=== PATIENT | female | born 1965 | race Caucasian/White ===

== ENCOUNTER 2016-11-06 07:21 | Outpatient (CLI) | payer MEDICARE, MEDICAID | END 2016-11-06 07:22 | disposition home or self-care (01) | DX: M47.892 Other spondylosis, cervical region (principal); M43.12 Spondylolisthesis, cervical region; M50.31 Other cervical disc degeneration, high cervical region ==

== ENCOUNTER 2016-11-16 16:13 | Outpatient (CLI) | payer MEDICARE, MEDICAID | END 2016-11-16 16:14 | disposition home or self-care (01) | DX: R06.02 Shortness of breath (principal); R53.83 Other fatigue; R07.9 Chest pain, unspecified ==

== ENCOUNTER 2016-12-03 11:15 | Day surgery (SDC) | payer MEDICARE, MEDICAID ==
[2016-12-03] MEDS ORDERED: LACTATED RINGERS 1,000 ML IV ONE (12:05)
[2016-12-03] MEDS ORDERED: MIDAZOLAM 2 MG/2 ML VIAL IVP ONE (14:21)
[2016-12-03] MEDS ORDERED: fentaNYL 100 MCG/2 ML VIAL IVP ONE (14:21)
--- NOTE | 2016-12-03 14:24 | SURGERY HX AND PHYSICAL(T) ---
Surgical History & Physical - PMH/PSH/Social Hx Does the pt have a hx of MRSA?: No Neurological History: Head injury Eyes, Ears, Nose, Throat: None Cardiovascular: None Respiratory: None Skin: None Endocrine/Autoimmune: None Gastrointestinal: None Urinary: None Musculoskeletal: Other Psychiatric: Anxiety General: Colonoscopy Orthopedic: Other Smoking Status: Never smoker Does the pt drink ETOH?: Yes Frequency: Occasional Does the pt have substance abuse?: No Substance Use and Type: Marijuana - Home Meds and Allergies Home Medications: Acyclovir [Zovirax] 200 mg PO BID 11/24/15 Meloxicam 7.5 mg PO BID 11/24/15 traZODone [Desyrel] 200 mg PO DAILY PM 11/24/15 FLUoxetine [PROzac] 80 mg PO DAILY 09/02/16 Gabapentin 300 mg PO TID 09/02/16 Allergies/Adverse Reactions: Allergies Allergy/AdvReac Type Severity Reaction Status Date / Time No Known Drug Allergies Allergy Verified 12/03/16 12:16 - Vital Signs Temperature: 36.8 C Respiratory Rate: 16 O2 Saturation: 100 Weight (kg): 66.3 kg Height: 1.68 m - Patient Review Patient Review: Problems were reviewed with the patient during this visit. Medications were reviewed with the patient during this visit. Allergies were reviewed this patient during this visit. Pertinent Tests Reviewed: All pertitent test for this patient were reviewed. - Assessment & Plan Assessment and Plan: This is a 51 year old female was initially seen on October 25, [address] Medel for her second screening colonoscopy. At that time I had the opportunity to meet her and discuss questions but Dr. Medel performed the H&P. More than 30 days were allowed to elapse between that visit and the procedure today hence an update to the H&P is required. Upon questioning, the patient states that there have been no changes to her medications, allergies, medical status, or symptoms. She has no new questions. The last colonoscopy was done 10 years ago and was normal. The patient does not recall there being a specific reason she had a colonoscopy at that time. There is no 1st degree family history of colon or rectal cancer but both of her maternal grandparents had rectal cancer. She states she has a BM every other day. No blood. No melena. No fever or chills, nausea or emesis. She does have some issues with urinary incontinence and she has had a TVH/BSO as well as a vaginal bladder sling placed for bladder prolapse. 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 She has chronic pain and is on gabapentin, trazadone and amytryptiline She also takes meloicam, prozac and acyclovir. She has scoliosis and DJD and she has had neck surgery without a fusion Allergies: tape, MSO4 and codiene Family History Summary: Father (luba.) - Has a Hx of Heart Disease - Entered On: 02/27/2014 Mother (luba.) - Has a Hx of Arthritis - Entered On: 08/04/2014 Mother (luba.) - Has a Hx of Anxiety - Entered On: 08/04/2014 Mother (luba.) - Has a Hx of Hypertension - Entered On: 08/04/2014 Mother (luba.) - Has a Hx of High Cholesterol - Entered On: 08/04/2014 Mother (luba.) - Has a Hx of Headaches - Entered On: 08/04/2014 Father (luba.) - Has a Hx of Arthritis - Entered On: 08/04/2014 Father (luba.) - Has a Hx of High Cholesterol - Entered On: 08/04/2014 General Comments - FH: Father: CABG x 4 age 65, HTN Mother: Arthritis, HTN Siblings: Mental illness Risk Factors: Former cigarette smoker of up to 5 packs per day quitting in 2013 Uses marijuana Caffeine use: 3 drinks per day No alcohol use Exercise 7 times per week: 7 Type of Exercise: pilates, yoga Seatbelt use: 100 % Sun Exposure: occasionally Colonoscopy History: Date of Last Colonoscopy: 04/09/2005 Mammogram History: Date of Last Mammogram: 11/10/2014 Review of Systems General Denies fever, anorexia and weight loss. GI Denies abdominal pain, nausea, vomiting, diarrhea, constipation, change in bowel habits, melena, hematochezia, jaundice, gas/bloating, indigestion/ heartburn and dysphagia. CV Denies chest pains, palpitations, syncope and peripheral edema. states she has had chest pain in the past and it was orthopedic related and she states she has a history of an irregular heart rate but it requires no medications Resp Denies cough, shortness of breath, hemoptysis, wheezing and pleuritic chest pain. Vascular Denies leg swelling, leg coolness, pain in legs with walking, resting leg pain and pain at night in legs. Complains of incontinence. Denies dysuria, hematuria and urinary frequency. has chronic pain issues and she has pain in the perineal area Neuro Denies paralysis, paresthesias and seizures. Endo Denies cold intolerance, heat intolerance, polydipsia and polyuria. Heme states she has chronic anemia MS Complains of back pain. scoliosis Physical Exam General: well developed, well nourished, in no acute distress Head: normocephalic and atraumatic Eyes: non-icteric sclera Nose: patent nares Mouth: no dentures Neck: no bruits, no masses Lungs: CTA bilateral with no wheezes Heart: RRR with no murmurs Abdomen: soft, well healed cholecystectomy scars, NT, ND, NABS, no masses, no HSM Msk: scoliosis, minimal tenderness of the lower back, negative CVA tenderness, normal gait Pulses: pulses normal in all 4 extremities Extremities: no cyanosis, clubbing or edema Neurologic: CN II-XII grossly intact Cervical Nodes: no significant adenopathy Psych: alert and cooperative; normal mood and affect; normal attention span and concentration Impression & Recommendations: Problem # 1: Screening for malignant neoplasm of colon (ICD-V76.51) (ICD10- Z12.11) Assessment: Unchanged I have discussed the risks, benefits, alternatives and complications of a colonoscopy with potential biopsies with the patient to include but not limited to bleeding, perforation of the colon at the time of the procedure, delayed perforation, bleeding from biopsy sites that requires repeat colonoscopy and treatment, potential finding of cancer, need for repeated procedure preparation is not adequate or visualization is not possible, discomfort after the procedure , nausea, emesis, aspiration, pneumonia and . I have also discussed the requirement for MAC during which time the patient will receive IV sedative medication and will be monitored. The risk with this is aspiration, hypoventilation, inadequate sedation, recall of the procedure, pain during the procedure, requirement for anesthesiology support, decreased blood pressure, myocardial infarction and . The benefit of a colonoscopy is that we will see if there is evidence of polyps , lesions or cancer and the benefit of the moderate sedation will be that the patient will tolerate the procedure. The alternative to colonoscopy is not to perform it and follow the patient and the alternative to conscious sedation is general anesthesia. The patient understands and has had the opportunity to ask questions and desires the procedure. I have reiterated all of the above with the patient and the patient and I are in aggreement to move forward with the colonoscopy.
[2016-12-03 15:38] VITALS: BP 104/63
== END 2016-12-03 11:16 | disposition home or self-care (01) ==
LOC: SDS 11:15
PROVIDERS: ATTEND Surgery
PROC: 0DJD8ZZ Inspection of Lower Intestinal Tract, Via Natural or Artificial Opening Endoscopic (ICD-10-PCS; principal; 2016-12-03 12:45)
DX: Z12.11 Encounter for screening for malignant neoplasm of colon (principal); K57.30 Diverticulosis of large intestine without perforation or abscess without bleeding; K64.8 Other hemorrhoids; Z87.891 Personal history of nicotine dependence
CPT/HCPCS: G0121; J7120

== ENCOUNTER 2017-01-07 14:48 | Outpatient (CLI) | payer MEDICARE, MEDICAID ==
--- NOTE | 2017-01-08 10:35 | CT Report ---
CT CERVICAL SPINE WITHOUT CONTRAST: 01/07/2017 CLINICAL INDICATION: Cervicalgia. TECHNIQUE: Axial CT images of the cervical spine are obtained without contrast, following which sagi ttal and coronal reconstructions were performed. In accordance with CT protocol optimization, one or more of the following dose reduction techniques w ere utilized for this exam: automated exposure control, adjustment of mA and/or KV based on patient size, or use of iterative reconstructive technique. FINDINGS: There is mild levoscoliosis of the cervical spine, and 5 mm anterolisthesis of C5 on C6. The C1-2 and C2-3 disks are unremarkable. At C3-4, there is facet and uncovertebral hypertrophy, producing bilateral foraminal narrowing. No s ignificant spinal stenosis. At C4-5, there is right worse than left uncovertebral and facet hypertrophy, producing right foramina l narrowing. No significant spinal stenosis. At C5-6, the combination of anterolisthesis and facet hypertrophy produces mild bilateral foraminal n arrowing. No significant spinal stenosis. At C6-7, there is mild disk-osteophyte, without significant spinal or foraminal narrowing. The C7-T1 disc is unremarkable. The prevertebral soft tissues appear unremarkable. Limited evaluation of the lung apices is unremark able. IMPRESSION: DEGENERATIVE CHANGES, WITH MILD LEVOSCOLIOSIS AND ANTEROLISTHESIS OF C5 ON C6. JOB #: [id number] EXT JOB #:[id number]
== END 2017-01-07 14:49 | disposition home or self-care (01) ==
LOC: DI 14:48
PROVIDERS: ATTEND Neurological Surgery
DX: M47.892 Other spondylosis, cervical region (principal); M43.12 Spondylolisthesis, cervical region; M41.82 Other forms of scoliosis, cervical region
CPT/HCPCS: 72125

== ENCOUNTER 2017-11-07 08:00 | Outpatient (CLI) | payer MEDICARE, MEDICAID ==
[2017-11-07 19:08] LABS: BASOPHILS % (AUTO) 0.6 %; EOSINOPHILS # (AUTO) 0.5 10^3/uL (0.0-0.7); EOSINOPHILS % (AUTO) 6.8 %; HGB - HEMOGLOBIN 12.2 g/dL (12.0-16.0); LYMPHOCYTES # (AUTO) 2.3 10^3/uL (1.5-3.5); LYMPHOCYTES % (AUTO) 33.7 %; MEAN CORPUSCULAR HEMOGLOBIN 31.5 pg (27.0-31.0); MEAN CORPUSCULAR HGB CONC 32.8 g/dL (32.0-36.0); MEAN CORPUSCULAR VOLUME 96.1 fL (81.0-99.0); MEAN PLATELET VOLUME 7.7 fL (7.9-10.8); MONOCYTES # (AUTO) 0.5 10^3/uL (0.0-1.0); NEUTROPHILS # (AUTO) 3.6 10^3/uL (1.5-6.6); NEUTROPHILS % (AUTO) 51.9 %; PLT - PLATELET COUNT 232 10^3/uL (130-450); RED BLOOD COUNT 3.87 10^6/uL (4.20-5.40); RED CELL DISTRIBUTION WIDTH 13.3 % (12.0-15.0); WHITE BLOOD COUNT 6.9 x10^3/uL (4.8-10.8)
[2017-11-07 19:29] LABS: H. PYLORIS ANTIGEN STL NEGATIVE (Negative)
[2017-11-07 19:31] LABS: ALBUMIN 4.4 g/dL (3.2-5.5); ALBUMIN/GLOBULIN RATIO 1.5 (1.0-2.2); BILIRUBIN,TOTAL 0.6 mg/dL (0.2-1.0); CALCIUM 9.4 mg/dL (8.5-10.3); CREATININE 0.7 mg/dL (0.4-1.0); TOTAL PROTEIN 7.3 g/dL (6.7-8.2)
== END 2017-11-07 08:01 | disposition home or self-care (01) ==
LOC: LAB.WCP 08:00
PROVIDERS: ATTEND Physician Assistant Medical
DX: R10.13 Epigastric pain (principal)
CPT/HCPCS: 36415; 80053; 83690; 85025; 87338

== ENCOUNTER 2017-11-13 10:02 | Outpatient (CLI) | payer MEDICARE, MEDICAID ==
[2017-11-13 10:29] LABS: BASOPHILS % (AUTO) 0.7 %; EOSINOPHILS # (AUTO) 0.5 10^3/uL (0.0-0.7); EOSINOPHILS % (AUTO) 10.6 %; LYMPHOCYTES % (AUTO) 40.6 %; MEAN CORPUSCULAR HEMOGLOBIN 32.1 pg (27.0-31.0); MEAN CORPUSCULAR VOLUME 94.4 fL (81.0-99.0); MEAN PLATELET VOLUME 7.2 fL (7.9-10.8); MONOCYTES # (AUTO) 0.3 10^3/uL (0.0-1.0); MONOCYTES % (AUTO) 6.7 %; NEUTROPHILS # (AUTO) 2.1 10^3/uL (1.5-6.6); NEUTROPHILS % (AUTO) 41.4 %; PLT - PLATELET COUNT 210 10^3/uL (130-450); RED BLOOD COUNT 3.75 10^6/uL (4.20-5.40); RED CELL DISTRIBUTION WIDTH 13.3 % (12.0-15.0)
[2017-11-13 10:30] LABS: BILIRUBIN,URINE NEGATIVE (NEGATIVE); GLUCOSE, URINE (UA) NEGATIVE (NEGATIVE); KETONES,URINE (UA) NEGATIVE (NEGATIVE); LEUKOCYTE ESTERASE, URINE NEGATIVE (NEGATIVE); NITRITE,URINE NEGATIVE (NEGATIVE); OCCULT BLOOD,URINE NEGATIVE (NEGATIVE); PH,URINE 7.5 PH (5.0-7.5); PROTEIN,URINE NEGATIVE (NEGATIVE); UROBILINOGEN,URINE 0.2 (NORMAL) E.U./dL (NORMAL)
[2017-11-13 10:31] LABS: CLARITY,URINE CLEAR (CLEAR)
[2017-11-13 10:52] LABS: ALBUMIN 4.1 g/dL (3.2-5.5); ALBUMIN/GLOBULIN RATIO 1.4 (1.0-2.2); BILIRUBIN,TOTAL 0.7 mg/dL (0.2-1.0); CALCIUM 9.1 mg/dL (8.5-10.3); CREATININE 0.7 mg/dL (0.4-1.0); TOTAL PROTEIN 7.1 g/dL (6.7-8.2)
[2017-11-13 10:52] LABS: BACTERIA,URINE Rare /HPF (None Seen); RBC,URINE 0-5 /HPF (0-5); SQUAMOUS EPITHELIAL CELL,UR RARE Squamous (<= Few)
== END 2017-11-13 10:03 | disposition home or self-care (01) ==
LOC: LAB 10:02
PROVIDERS: ATTEND Family Medicine
DX: R10.32 Left lower quadrant pain (principal)
CPT/HCPCS: 36415; 80053; 81001; 85025; 87086

== ENCOUNTER 2017-11-13 14:13 | Outpatient (CLI) | payer MEDICARE, MEDICAID ==
[2017-11-13] MEDS ORDERED: IOPAMIDOL-300 100 ML VIAL ONE (14:37)
[2017-11-13] MEDS ORDERED: IOPAMIDOL-300 50 ML VIAL ONE ×2 (14:37→14:39)
--- NOTE | 2017-11-13 16:51 | CT Report ---
EXAM: CT ABDOMEN AND PELVIS EXAM DATE: 11/13/2017 04:28 PM. CLINICAL HISTORY: ABDOMINAL Pain, left LOWER QUADRANT. COMPARISONS: None. TECHNIQUE: Routine helical CT imaging was performed through the abdomen and pelvis. IV contrast: 100M L ISOVUE 300. Enteric contrast: Yes. Reconstructions: Coronal and sagittal. In accordance with CT protocol optimization, one or more of the following dose reduction techniques w ere utilized for this exam: automated exposure control, adjustment of mA and/or KV based on patient s ize, or use of iterative reconstructive technique. FINDINGS: Lung Bases: Mild peripheral atelectasis or fibrotic changes. No acute infiltrate. No effusion. Liver: Normal. No masses. Gallbladder/Bile Ducts: Surgically absent. No ductal dilation. Spleen: Normal. Pancreas: Normal. Adrenal Glands: Normal. Kidneys: Normal. No masses or hydronephrosis. Peritoneal Cavity/Bowel: Normal. No free fluid, free air or adenopathy. No masses or acute inflammato ry process. The appendix is well visualized and normal. Pelvic Organs: Normal. The bladder and visualized pelvic organs are within normal limits. Vasculature: No aneurysms or other significant abnormality. Bones: Mild scoliosis with degeneration changes. Other: None. IMPRESSION: Chronic and incidental findings. No acute disease. [facility] Referring Provider Line: [phone] SITE ID: [id number]
[2017-11-13] MEDS ORDERED: IOPAMIDOL-300 50 ML VIAL PO ONE (17:19)
[2017-11-13] MEDS ORDERED: IOPAMIDOL-300 100 ML VIAL IVP ONE (17:19)
== END 2017-11-13 14:14 | disposition home or self-care (01) ==
LOC: DI 14:13
PROVIDERS: ATTEND Family Medicine
DX: R10.32 Left lower quadrant pain (principal)
CPT/HCPCS: 74177; Q9967; 36415; 80053; 81001; 85025; 87086

== ENCOUNTER 2018-01-29 08:20 | Outpatient (CLI) | payer MEDICARE, MEDICAID | END 2018-01-29 08:21 | disposition critical access hospital (66) | LOC: EMS 08:20 | PROVIDERS: ATTEND Surgery | DX: R11.2 Nausea with vomiting, unspecified (principal); R10.9 Unspecified abdominal pain; R19.7 Diarrhea, unspecified; R51 Headache | CPT/HCPCS: A0425; A0427 ==

== ENCOUNTER 2018-01-29 08:45 | Emergency (ER) | payer MEDICARE, MEDICAID ==
[2018-01-29] MEDS ORDERED: LIDOCAINE PATCH 5% TOP PRN (08:59)
[2018-01-29] MEDS ORDERED: SODIUM CHLORIDE 0.9% 1,000 ML IV ONE (08:59)
--- NOTE | 2018-01-29 09:03 | ED Physician Documentation ---
History of Present Illness - Stated complaint Stated Complaint: MIGRAINE - Additonal information Additional information: hx from pt 53 f pmhx nerissa-danlos, hereditary anemia, IBS, migraines sp Cspine surgery a year ago 4 days ago [place] striking her L mandaeism on rocks no LOC some rib and wrist pain since but not severe, ankle OK and able to bear wt this AM awoke at 6AM with a very severe pablo mandaeism S[place]NCHEZ and NV hx migraines but this feels different neck pain too and numbness to both hands has NV and then abd pain and then blood tinged emesis 2/2 SÁNCHEZ no fever no cough sx largely resolved with zofran by EMS Review of Systems Constitutional: denies: Fever, Chills Eyes: denies: Loss of vision Ears: denies: Loss of hearing Nose: denies: Epistaxis Cardiac: reports: Chest pain / pressure (from fall) Respiratory: denies: Dyspnea, Cough GI: reports: Abdominal Pain (b) : denies: Dysuria Musculoskeletal: reports: Neck pain, Joint pain (L thumb). denies: Back pain Neurologic: reports: Numbness (both hands), Headache, Head injury. denies: Focal weakness Endocrine: denies: Easy bruising / bleeding Immunocompromised: denies: Immunocompromised PD PAST MEDICAL HISTORY - Past Medical History Psych: Panic attacks, Obsessive compulsive disorder, Other Musculoskeletal: Osteoarthritis, Chronic back pain - Past Surgical History Past Surgical History: Yes General: Cholecystectomy Ortho: Spine surgery /FIRST HELPER: Hysterectomy - Present Medications Home Medications: Ambulatory Orders Medication Instructions Recorded Confirmed Acyclovir [Zovirax] 200 mg PO BID 11/24/15 07/11/17 traZODone [Desyrel] 200 mg PO DAILY PM 11/24/15 07/11/17 FLUoxetine [PROzac] 80 mg PO DAILY 09/02/16 07/11/17 Gabapentin 300 mg PO TID 09/02/16 07/11/17 - Allergies Allergies/Adverse Reactions: Allergies Allergy/AdvReac Type Severity Reaction Status Date / Time morphine Allergy Itching Verified 01/29/18 09:01 Penicillins Allergy Edema Verified 01/29/18 09:02 - Social History Does the pt smoke?: No Smoking Status: Never smoker Does the pt drink ETOH?: Yes Does the pt have substance abuse?: No - Immunizations Immunizations are current?: Yes - POLST Patient has POLST: No PD ED PE NORMAL - Vitals Vital signs reviewed: Yes - General General: Alert and oriented X 3 - HEENT HEENT: PERRL. No: Atraumatic (TTP and STS L parietal, no arroyo sign) - Neck Neck: No: No bony TTP (+ TTP will collar and image) - Cardiac Cardiac: RRR - Respiratory Respiratory: No respiratory distress, Clear bilaterally, Other (TTP mild chest wall s crepitus) - Abdomen Abdomen: Non tender, Other (now no pain) - Derm Derm: Other (brusing to L radial hand = pt able to fully range and says she does not think she needs an xray) - Extremities Extremities: No deformity - Neuro Neuro: Alert and oriented X 3, heating fixture tender 2-12 intact, No motor deficit, Normal speech. No: No sensory deficit (numbness to both hands) Eye Opening: Spontaneous Motor: Obeys Commands Verbal: Oriented GCS Score: 15 Results - Vitals Vitals: Vital Signs - 24 hr 01/29/18 01/29/18 08:56 11:51 Temperature 36.7 C Heart Rate 74 68 Respiratory 14 18 Rate Blood Pressure 129/86 H 110/73 O2 Saturation 99 98 Oxygen O2 Source Room air - Labs Labs: Laboratory Tests 01/29/18 01/29/18 09:30 09:30 WBC 9.0 RBC 3.92 L Hgb 12.9 Hct 37.9 MCV 96.8 MCH 32.9 H MCHC 34.0 RDW 13.0 Plt Count 224 MPV 7.2 L Neut # (Auto) 7.1 H Lymph # (Auto) 1.1 L Wilcox # (Auto) 0.6 Eos # (Auto) 0.2 Baso # (Auto) 0.0 Absolute Nucleated RBC 0.00 Nucleated RBC % 0.0 Sodium 139 Potassium 3.5 Chloride 106 Carbon Dioxide 23 Anion Gap 10.0 BUN 18 Creatinine 0.7 Estimated GFR (MDRD) 88 L Glucose 96 Calcium 9.2 Total Bilirubin 0.5 AST 20 ALT 14 Alkaline Phosphatase 58 Total Protein 7.5 Albumin 4.7 Globulin 2.8 Albumin/Globulin Ratio 1.7 Lipase 27 - Rads (name of study) CTH Radiology: See rad report (neg) CTCS Radiology: See rad report (no acute, degen changes, stable surgical fusion) CXR Radiology: See rad report (neg) PD MEDICAL DECISION MAKING - ED course ED course: ROSA M performed SÁNCHEZ better abd pain better NV better 2/2 HI and teresa tirado got CTH and CS - no acute no rib fx on CXR pt does not think her wrist or ankle are broken labs fine feel pt is safe to go home - Sepsis Event Vital Signs: Vital Signs - 24 hr 01/29/18 01/29/18 08:56 11:51 Temperature 36.7 C Heart Rate 74 68 Respiratory 14 18 Rate Blood Pressure 129/86 H 110/73 O2 Saturation 99 98 Oxygen O2 Source Room air Departure - Departure Disposition: Home, Self Care Clinical Impression: Head injury Qualifiers: Encounter type: initial encounter Qualified Code(s): S09.90XA - Unspecified injury of head, initial encounter Headache Qualifiers: Headache type: unspecified Headache chronicity pattern: acute headache Intractability: not intractable Qualified Code(s): R51 - Headache Neck sprain Qualifiers: Encounter type: initial encounter Qualified Code(s): S13.9XXA - Sprain of joints and ligaments of unspecified parts of neck, initial encounter Chest wall contusion Qualifiers: Encounter type: initial encounter Laterality: unspecified laterality Qualified Code(s): S20.219A - Contusion of unspecified front wall of thorax, initial encounter Hand contusion Qualifiers: Encounter type: initial encounter Laterality: right Qualified Code(s): S60.221A - Contusion of right hand, initial encounter Abdominal pain Qualifiers: Abdominal location: generalized Qualified Code(s): R10.84 - Generalized abdominal pain Vomiting Qualifiers: Vomiting type: unspecified Vomiting Intractability: non-intractable Nausea presence: with nausea Qualified Code(s): R11.2 - Nausea with vomiting, unspecified Condition: Good Instructions: ED Head Injury Closed, ED Cephalgia Unspecified, ED Nausea Vomiting Comments: The CT scans of your head and spine were fine. The chest xray did not show any broken ribs. The labs were all fine too including liver kidney and pancreas function You are feeling better and I think it is safe for you to go home. Please follow up with your PMD for a recheck before the weekend
[2018-01-29 09:39] LABS: BASOPHILS % (AUTO) 0.5 %; EOSINOPHILS # (AUTO) 0.2 10^3/uL (0.0-0.7); EOSINOPHILS % (AUTO) 2.1 %; HGB - HEMOGLOBIN 12.9 g/dL (12.0-16.0); LYMPHOCYTES # (AUTO) 1.1 10^3/uL (1.5-3.5); LYMPHOCYTES % (AUTO) 12.3 %; MEAN CORPUSCULAR HEMOGLOBIN 32.9 pg (27.0-31.0); MEAN CORPUSCULAR VOLUME 96.8 fL (81.0-99.0); MEAN PLATELET VOLUME 7.2 fL (7.9-10.8); MONOCYTES # (AUTO) 0.6 10^3/uL (0.0-1.0); MONOCYTES % (AUTO) 6.4 %; NEUTROPHILS # (AUTO) 7.1 10^3/uL (1.5-6.6); NEUTROPHILS % (AUTO) 78.7 %; PLT - PLATELET COUNT 224 10^3/uL (130-450); RED BLOOD COUNT 3.92 10^6/uL (4.20-5.40)
[2018-01-29 09:52] LABS: ALBUMIN 4.7 g/dL (3.2-5.5); ALBUMIN/GLOBULIN RATIO 1.7 (1.0-2.2); BILIRUBIN,TOTAL 0.5 mg/dL (0.2-1.0); CALCIUM 9.2 mg/dL (8.5-10.3); CREATININE 0.7 mg/dL (0.4-1.0); TOTAL PROTEIN 7.5 g/dL (6.7-8.2)
--- NOTE | 2018-01-29 10:33 | CT Report ---
Procedure Date: 01/29/2018 Accession Number: [id number] / [id number] Procedure: CT - Head W/O CPT Code: FULL RESULT: EXAM: CT HEAD EXAM DATE: 01/29/2018 10:24 AM. CLINICAL HISTORY: Fell L caodaism vs rocks, SÁNCHEZ. COMPARISON: None. TECHNIQUE: Multiaxial CT images were obtained from the foramen magnum to the vertex. Reformats: Sagittal and coronal. IV contrast: None. In accordance with CT protocol optimization, one or more of the following dose reduction techniques were utilized for this exam: automated exposure control, adjustment of mA and/or KV based on patient size, or use of iterative reconstructive technique. FINDINGS: Parenchyma: No intraparenchymal hemorrhage. No evidence of mass, midline shift, or CT findings of infarction. Wilcox-white differentiation is distinct. Extraaxial Spaces: Normal for age. No subdural or epidural collections identified. Ventricles: Normal in size and position. Sinuses and Orbits: Imaged paranasal sinuses, orbits, and mastoids show no significant abnormality. Bones: No evidence of fracture or calvarial defect. Other: Globes and orbits are unremarkable. IMPRESSION: 1. No acute intracranial abnormality is identified. 2. No acute fracture. [facility]
--- NOTE | 2018-01-29 10:43 | XRAY Report ---
Procedure Date: 01/29/2018 Accession Number: [id number] / [id number] Procedure: XR - Chest 2 View X-Ray CPT Code: 94711 FULL RESULT: EXAM: CHEST RADIOGRAPHY EXAM DATE: 01/29/2018 10:27 AM. CLINICAL HISTORY: Fell on rocks chest pain. COMPARISON: 07/11/2017. TECHNIQUE: 2 views. FINDINGS: Lungs/Pleura: Interstitium is prominent. No consolidation. Lung volumes upper normal. No vascular congestion. No pneumothorax. No pleural effusions. Mediastinum: Heart size and mediastinal contour stable. Other: No acute osseous abnormalities. Degenerative changes of the thoracic and lumbar spine. Thoracic/lumbar scoliosis. Changes are again seen from cervical fusion. IMPRESSION: 1. No acute disease in the chest. [facility]
--- NOTE | 2018-01-29 11:00 | CT Report ---
Procedure Date: 01/29/2018 Accession Number: [id number] / [id number] Procedure: CT - Cervical Spine W/O CPT Code: FULL RESULT: EXAM: CT CERVICAL SPINE WITHOUT CONTRAST DATE: 01/29/2018 10:24 AM. HISTORY: Fell hit left head, neck pain, prior surgery. COMPARISONS: MRI cervical spine from 5 11/06/2016. CT from 01/07/2017. TECHNIQUE: Thin-section axial images were acquired of the cervical spine without contrast. Post-processing: Coronal and sagittal reformats. Other: None. In accordance with CT protocol optimization, one or more of the following dose reduction techniques were utilized for this exam: automated exposure control, adjustment of mA and/or KV based on patient size, or use of iterative reconstructive technique. FINDINGS: Alignment: Grade 1 anterolisthesis of C4 on C5 again seen. Slight levoscoliosis of the cervical spine. Articular facets are normally aligned. Occipital condyles are normally aligned. Bones: No acute fracture or bony lesion. Degenerative spurring. Interspace Levels/Facets: C1-C2: Degenerative changes of the anterior arch of C1 and the dens. C2-C3: Cervical facet arthropathy. Uncovertebral hypertrophy. C3-C4: Uncovertebral hypertrophy. Facet arthropathy. Moderate to severe right and mild left neural foraminal narrowing. C4-C5: Right greater than left facet arthropathy. Mild to moderate right neural foraminal narrowing. C5-C6: Changes are seen from anterior C5-C6 cervical fusion and intervertebral disk replacement. Cervical facet arthropathy. C6-C7: Disk space narrowing and osteophyte formation. Facet arthropathy. C7-T1: Disk space narrowing. Osteophyte formation. Facet arthropathy. Musculature: Normal. No fatty atrophy. Other: The paravertebral and prevertebral soft tissues are unremarkable. Lung apices are clear. Airways are clear. Visualized thyroid gland is unremarkable. No enlarged cervical lymph nodes are identified. Skull base is unremarkable. IMPRESSION: 1. No acute cervical spine abnormalities are identified. 2. Status post C5-C6 anterior cervical fusion and diskectomy, stable. 3. Degenerative changes of the cervical spine greatest at C6-C7 and C7-T1. [facility]
[2018-01-29 12:33] VITALS: BP 127/81
== END 2018-01-29 12:34 | disposition home or self-care (01) ==
LOC: EDUNIT# → ED 08:45
DX: S09.90XA Unspecified injury of head, initial encounter (principal); S13.9XXA Sprain of joints and ligaments of unspecified parts of neck, initial encounter; S20.219A Contusion of unspecified front wall of thorax, initial encounter; S60.221A Contusion of right hand, initial encounter; R10.84 Generalized abdominal pain; R11.2 Nausea with vomiting, unspecified; W18.30XA Fall on same level, unspecified, initial encounter; W22.8XXA Striking against or struck by other objects, initial encounter; X50.1XXA Overexertion from prolonged static or awkward postures, initial encounter; Y92.832 Beach as the place of occurrence of the external cause
CPT/HCPCS: 36415; 70450; 71046; 72125; 80053; 83690; 85025; 96360; 99283; A9270

== ENCOUNTER 2018-10-13 14:32 | Outpatient (CLI) | payer MEDICARE, MEDICAID ==
--- NOTE | 2018-10-14 09:05 | XRAY Report ---
Reason: FOOT PAIN, LEFT Procedure Date: 10/13/2018 Accession Number: [id number] / [id number] Procedure: WCP - Foot 2 View LT CPT Code: FULL RESULT: EXAM: LEFT FOOT RADIOGRAPHY EXAM DATE: 10/13/2018 02:47 PM. CLINICAL HISTORY: FOOT PAIN, LEFT. COMPARISON: None. TECHNIQUE: 3 views. FINDINGS: Bones: There is a small calcaneal bone spur. No fractures or bone lesions. Joints: Normal. No subluxations. Soft Tissues: Normal. No soft tissue swelling. IMPRESSION: No acute abnormality. [facility]
--- NOTE | 2018-10-14 09:07 | XRAY Report ---
Reason: HIP PAIN, BILATERAL Procedure Date: 10/13/2018 Accession Number: [id number] / [id number] Procedure: WCP - Hip BILAT CPT Code: FULL RESULT: EXAM: BILATERAL HIP RADIOGRAPHY EXAM DATE: 10/13/2018 02:47 PM. CLINICAL HISTORY: HIP PAIN, BILATERAL. COMPARISON: None. TECHNIQUE: 2 views each. FINDINGS: Bones: Normal. No fractures or bone lesion. Right Hip: Normal. No dislocation. The hip joint space is preserved. Left Hip: Normal. No dislocation. The hip joint space is preserved. Soft Tissues: Normal. No soft tissue swelling. IMPRESSION: Normal bilateral hip radiography. [facility]
== END 2018-10-13 14:33 | disposition home or self-care (01) ==
LOC: DI.WCP 14:32
PROVIDERS: ATTEND Physician Assistant Medical
DX: M79.672 Pain in left foot (principal); M25.552 Pain in left hip; M25.551 Pain in right hip
CPT/HCPCS: 73521

== ENCOUNTER 2018-10-14 11:56 | Outpatient (CLI) | payer MEDICARE, MEDICAID ==
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
== END 2018-10-14 11:57 | disposition home or self-care (01) ==
LOC: DI 11:56
PROVIDERS: ATTEND Physician Assistant Medical
DX: M47.9 Spondylosis, unspecified (principal); M48.02 Spinal stenosis, cervical region; Z98.1 Arthrodesis status; M43.12 Spondylolisthesis, cervical region; M50.31 Other cervical disc degeneration, high cervical region
CPT/HCPCS: 72141

== ENCOUNTER 2018-12-17 15:42 | Outpatient (CLI) | payer MEDICARE, MEDICAID ==
--- NOTE | 2018-12-18 10:45 | Ultrasound Report ---
Reason: INGUINAL PAIN,RIGHT Procedure Date: 12/17/2018 Accession Number: [id number] / [id number] Procedure: US - Pelvic Limited or F/U CPT Code: FULL RESULT: EXAM: INGUINAL ULTRASOUND EXAM DATE: 12/17/2018 05:39 PM. CLINICAL HISTORY: Inguinal pain, right. COMPARISON: None. TECHNIQUE: Real-time sonographic imaging of the inguinal canals and vascular structures, including color-flow, was performed by the guitar maker. Multiple care support representative static images were saved for review. FINDINGS: Hernia: None identified with or without Valsalva. Soft Tissues: Normal. No fluid collections or adenopathy. Other: None. IMPRESSION: Normal. No inguinal hernia evident. RADIA
== END 2018-12-17 15:43 | disposition home or self-care (01) ==
LOC: DI 15:42
PROVIDERS: ATTEND Physician Assistant
DX: R10.31 Right lower quadrant pain (principal)
CPT/HCPCS: 76857

== ENCOUNTER 2018-12-26 09:30 | Outpatient (CLI) | payer MEDICARE, MEDICAID ==
[2018-12-26] MEDS ORDERED: IOVERSOL 320 100 ML VIAL IVP ONE ×2 (09:53→13:39)
[2018-12-26] MEDS ORDERED: IOVERSOL 320 50 ML VIAL ONE (09:53)
--- NOTE | 2018-12-26 14:59 | CT Report ---
Reason: ABDOMINAL PAIN,RIGHT LOWER QUADRANT Procedure Date: 12/26/2018 Accession Number: [id number] / [id number] Procedure: CT - Abdomen/Pelvis W CPT Code: FULL RESULT: EXAM: CT ABDOMEN AND PELVIS EXAM DATE: 12/26/2018 11:20 AM. CLINICAL HISTORY: Abdominal pain, right lower quadrant. COMPARISONS: ABDOMEN/PELVIS W/ 11/13/2017 4:19 PM. TECHNIQUE: Routine helical CT imaging was performed through the abdomen and pelvis. IV contrast: 70 mL Optiray 320. Enteric contrast: Yes. Reconstructions: Coronal and sagittal. In accordance with CT protocol optimization, one or more of the following dose reduction techniques were utilized for this exam: automated exposure control, adjustment of mA and/or KV based on patient size, or use of iterative reconstructive technique. FINDINGS: Lung Bases: Bibasilar peripheral interstitial thickening versus groundglass right greater than left is noted, similar to prior in distribution, possibly slightly more prominent. Liver: Normal. No masses. Gallbladder/Bile Ducts: Status post cholecystectomy. Spleen: Normal. Pancreas: Normal. Adrenal Glands: Normal. Kidneys: Normal. No masses or hydronephrosis. Peritoneal Cavity/Bowel: Visually, there is marked narrowing of the caliber of the terminal ileum with no inflammatory changes in the cecal region and the appendix not visualized. The appendix is partially visualized with the area of the appendix as seen on previous CT demonstrating no inflammatory changes. Pelvic Organs: Normal. The bladder and visualized pelvic organs are within normal limits. Vasculature: No aneurysms or other significant abnormality. Bones: Redemonstration of moderate levoconvex thoracolumbar scoliosis. No aggressive osseous lesions. Other: None. IMPRESSION: Persistent lung base changes, possibly early interstitial lung disease. Scoliosis. Partial visualization of the appendix with no active inflammation in the region. RADIA
== END 2018-12-26 09:31 | disposition home or self-care (01) ==
LOC: DI 09:30
PROVIDERS: ATTEND Physician Assistant
DX: R10.31 Right lower quadrant pain (principal); M41.85 Other forms of scoliosis, thoracolumbar region
CPT/HCPCS: 74177; Q9967

== ENCOUNTER 2019-02-11 10:40 | Outpatient (CLI) | payer MEDICARE, MEDICAID ==
--- NOTE | 2019-02-11 14:49 | XRAY Report ---
Reason: RT INGUINAL REPAIR/PRE OP Procedure Date: 02/11/2019 Accession Number: [id number] / [id number] Procedure: XR - Chest 2 View X-Ray CPT Code: 33626 FULL RESULT: EXAM: CHEST RADIOGRAPHY EXAM DATE: 02/11/2019 10:49 AM. CLINICAL HISTORY: RT INGUINAL REPAIR/PRE OP. COMPARISON: CHEST 2 VIEW 01/29/2018 10:16 AM. TECHNIQUE: 2 views. FINDINGS: Lungs/Pleura: No focal opacities evident. No pleural effusion. No pneumothorax. Normal volumes. Mediastinum: Heart and mediastinal contours are unremarkable. Other: None. IMPRESSION: No acute intrathoracic plain film abnormality. RADIA
== END 2019-02-11 10:41 | disposition home or self-care (01) ==
LOC: DI 10:40 → RT 10:41
PROVIDERS: ATTEND Surgery
DX: Z01.818 Encounter for other preprocedural examination (principal); K40.90 Unilateral inguinal hernia, without obstruction or gangrene, not specified as recurrent; Q79.6 Ehlers-Danlos syndromes
CPT/HCPCS: 71046; 93005

== ENCOUNTER 2019-02-17 07:26 | Day surgery (SDC) | payer MEDICARE, MEDICAID ==
[~2019-02-17 07:26] MED LIST: CEFAZOLIN SODIUM IN 0.9 % NACL 2 GM/100 ML BAG IV ONE
[2019-02-17] MEDS ORDERED: LACTATED RINGERS 1,000 ML IV ONE (07:59)
--- NOTE | 2019-02-17 08:08 | ANESTHESIA ---
Pre-Anesthesia VS, & Labs - Diagnosis right inguinal hernia - Procedure right inguinal hernia repair Vital Signs: Temp Pulse Resp BP Pulse Ox 36.7 C 62 16 140/70 H 98 02/17/19 07:40 02/17/19 07:40 02/17/19 07:40 02/17/19 07:40 02/17/19 07:40 Height 5 ft 6 in Weight (kg) 67.4 kg Body Mass Index 22.6 - NPO >8 hours - Is Patient ?: No - Lab Results Current Lab Results: Laboratory Tests 02/17/19 07:55: POC Whole Bld Glucose 94 Home Medications and Allergies Home Medications: Ambulatory Orders Albuterol Sulf [Ventolin Hfa Inhaler] 1 - 2 puffs INH Q4HR PRN 02/11/19 Butalbital/Aspirin/Caffeine [Svgpjzxwbu-WMG-Phijjpnx Cap] 1 - 2 each PO Q4HR PRN 02/11/19 Cyclobenzaprine HCl 10 mg PO TID PRN 02/11/19 Dicyclomine HCl 1 - 2 cap PO QID PRN 02/11/19 Fluticasone [Flonase] 1 sprays DESHAWN BID 02/11/19 Meloxicam 7.5 mg PO BID PRN 02/11/19 Acyclovir [Zovirax] 200 mg PO BID 11/24/15 traZODone [Desyrel] 200 mg PO DAILY PM 11/24/15 FLUoxetine [PROzac] 20 mg PO TID 09/02/16 Albuterol Sulf [Ventolin Hfa Inhaler] 1 - 2 puffs INH Q4HR PRN 02/11/19 Butalbital/Aspirin/Caffeine [Xqlanlvsgl-CZT-Etppucmj Cap] 1 - 2 each PO Q4HR PRN 02/11/19 Cyclobenzaprine HCl 10 mg PO TID PRN 02/11/19 Dicyclomine HCl 1 - 2 cap PO QID PRN 02/11/19 Fluticasone [Flonase] 1 sprays DESHAWN BID 02/11/19 Meloxicam 7.5 mg PO BID PRN 02/11/19 Allergies/Adverse Reactions: Allergies Allergy/AdvReac Type Severity Reaction Status Date / Time morphine Allergy Itching Verified 01/29/18 09:01 adhesive AdvReac Rash Verified 02/11/19 10:53 Anes History & Medical History - Anesthetic History Anesthesia Complications: reports: No previous complications - Medical History Cardiovascular: reports: Arrhythmia Pulmonary: reports: None, Sleep apnea (reports mild) Gastrointestinal: reports: Diverticulitis, Other (IBS) Urinary: reports: None Neuro: reports: Migraines Musculoskeletal: reports: Osteoarthritis, Chronic back pain, Other (Simona tirado.) Endocrine/Autoimmune: reports: None Blood Disorders: reports: None Skin: reports: Rosacea Smoking Status: Former smoker (Quit 10 years ago) Psychosocial: reports: Depression, Anxiety, Cannabis (daily marijuana use. approximately 6 bowls per day) - Surgical History General: Cholecystectomy, Colonoscopy, Other Eyes Ears Nose Throat (EENT): Tonsil/Adenoidectomy Gynecologic: Hysterectomy, Breast reduction Orthopedic: Arthroscopic surgery, Spine surgery (ACDF Cervical spine for fracture) Exam General: Alert, Oriented x3, Cooperative, No acute distress Dental: WNL Mouth Openin Fingerbreadth Neck Mobility: Reduced Mallampati classification: I Thyromental Distance: greater than 6 cm Respiratory: Lungs clear, Normal breath sounds, No respiratory distress, No accessory muscle use Cardiovascular: Regular rate, Normal S1, Normal S2, No murmurs Mental/Cognitive Status: Alert/Oriented X3, Normal for patient Plan Anesthesia Type: General Consent for Procedure(s) Verified and Reviewed: Yes Code Status: Attempt Resuscitation ASA classification: 2-Mild systemic disease Is this case an emergency?: No
[2019-02-17] MEDS ORDERED: ceFAZolin 1 GM VIAL ONE (08:13)
[2019-02-17] MEDS ORDERED: LIDOCAINE-MPF 1% 30 ML VIAL ONE (08:14)
[2019-02-17] MEDS ORDERED: BUPIVACAINE 0.5%-EPI 1:200000 PF 30 ML VIAL ONE (08:15)
[2019-02-17] MEDS ORDERED: fentaNYL 100 MCG/2 ML VIAL IVP ONE (08:30)
[2019-02-17] MEDS ORDERED: KETOROLAC 30 MG/ML VIAL IVP ONE (08:30)
[2019-02-17] MEDS ORDERED: PROPOFOL 200 MG/20 ML VIAL IVP ONE (08:30)
[2019-02-17] MEDS ORDERED: MIDAZOLAM 2 MG/2 ML VIAL IVP ONE (08:30)
[2019-02-17] MEDS ORDERED: GLYCOPYRROLATE 1 MG/5 ML VIAL IVP ONE (08:30)
[2019-02-17] MEDS ORDERED: SEVOFLURANE 250 ML LIQUID INH ONE (08:30)
[2019-02-17] MEDS ORDERED: ROCURONIUM 50 MG/5 ML VIAL IVP ONE (08:30)
[2019-02-17] MEDS ORDERED: LIDOCAINE-MPF 2% 5 ML VIAL IM ONE (08:30)
[2019-02-17] MEDS ORDERED: ONDANSETRON 4 MG/2 ML VIAL IVP ONE (08:30)
[2019-02-17] MEDS ORDERED: NEOSTIGMINE 1 MG/1 ML 10 ML MDV IVP ONE (08:30)
[2019-02-17] MEDS ORDERED: DEXAMETHASONE 4 MG/ML VIAL IVP ONE (08:30)
[2019-02-17] MEDS ORDERED: LIDOCAINE 1% 50 ML MDV SUBQ ONE (09:05)
[2019-02-17] MEDS ORDERED: BUPIVACAINE 0.5%-EPI 1:200000 PF 30 ML VIAL SUBQ ONE (09:05)
[2019-02-17] MEDS ORDERED: ceFAZolin 1 GM VIAL IR ONE (09:06)
--- NOTE | 2019-02-17 09:30 | OPERATIVE REPORT ---
Operative Report - General Procedure Date: 02/17/19 Planned Procedure: Right Inguinal Hernia Repair Pre-Op Diagnosis: Right Inguinal Hernia Procedure Performed: Right Inguinal Hernia Repair Post Op Diagnosis: Indirect Right Inguinal Hernia - Procedure Note Primary Surgeon: Ramona Anesthesia Provider: NICANOR Jade Anesthesia Technique: General ET tube, Local Estimated Blood Loss (mL): 5 Indications: Painful right inguinal hernia Findings: Indirect Right Inguinal Hernia Complications: None apparent - Other Other Information/Narrative: After obtaining informed consent, the patient is brought to the operating room and placed in the supine position on the operating table. Following successful induction of general endotracheal anesthesia, appropriate padding of all bony prominences, and placement of appropriate monitors, the right abdomen was prepped and draped in the standard surgical fashion. A timeout was held per MSOAP protocol. We began the procedure by creating an ileal inguinal nerve block. This was done by infiltrating a mixture of local anesthetics just medial to the anterior superior iliac spine on the right. We continued by identifying an area for our incision in the right lower quadrant. This was just superior and lateral to the pubic tubercle. This was anesthetized with local anesthetic. The incision was created and carried down through the skin and subcutaneous tissue. Aiden's fascia was identified and gently opened. The external oblique aponeurosis was identified. It was further anesthetized and then opened in the direction of its fibers. The ilioinguinal nerve was carefully identified and preserved. We then identified the round ligament and the indirect defect. The round ligament was divided between hemostats and allowed to retract back into the abdominal cavity. We turned our attention to repair of the defect itself. We chose a medium piece of Prolene hernia system mesh.The lot number was [id number].This was deployed into the defect according to powder shoveler's directions.The posterior circular portion was straightened and flattened in the preperitoneal space so that it would cover the entire area without wrinkling. The overlying leaflet was then sewn with a single Vicryl suture to the pubic tubercle medially. Laterally, the mesh was tucked underneath the external oblique aponeurosis to hold it into place. The ilioinguinal nerve was then released and allowed out tension on the surface of the mesh. The wound was checked for hemostasis and irrigated with saline solution. The external oblique aponeurosis was closed with a running locking Vicryl suture. Aiden's fascia was closed with Vicryl and Monocryl stitches were placed in the skin. All sponge, needle, and instrument counts were correct at the conclusion of the case. Patient was allowed to awaken from anesthesia without difficulty and taken to the postanesthesia care unit in good condition.
[2019-02-17] MEDS ORDERED: HYDROmorphone 0.5 MG/0.5 ML SYRINGE IVP PRN (09:35)
[2019-02-17] MEDS ORDERED: ONDANSETRON 4 MG/2 ML VIAL IVP PRN (09:35)
[2019-02-17] MEDS ORDERED: oxyCODONE 5 MG TABLET PO PRN (09:35)
[2019-02-17] MEDS ORDERED: oxyCODONE 5 MG TABLET ONE (10:32)
[2019-02-17 11:05] VITALS: BP 121/71
== END 2019-02-17 07:27 | disposition home or self-care (01) ==
LOC: SDS 07:26
PROVIDERS: ATTEND Surgery
PROC: 0YU50JZ Supplement Right Inguinal Region with Synthetic Substitute, Open Approach (ICD-10-PCS; principal; 2019-02-17 08:30)
DX: K40.90 Unilateral inguinal hernia, without obstruction or gangrene, not specified as recurrent (principal); Q79.6 Ehlers-Danlos syndromes; E16.2 Hypoglycemia, unspecified; D64.9 Anemia, unspecified; G47.30 Sleep apnea, unspecified
CPT/HCPCS: 49505; A9270; J0690; J7120

== ENCOUNTER 2019-08-28 11:00 | Outpatient (CLI) | payer MEDICARE, MEDICAID ==
--- NOTE | 2019-08-30 18:26 | XRAY Report ---
Reason: PAIN IN LEFT FOOT X 2 YEARS Procedure Date: 08/28/2019 Accession Number: [id number] / [id number] Procedure: XR - Foot 3 View LT CPT Code: Final Report FULL RESULT: EXAM: LEFT FOOT RADIOGRAPHY EXAM DATE: 08/28/2019 11:11 AM. CLINICAL HISTORY: PAIN IN LEFT FOOT X 2 YEARS. COMPARISON: FOOT 2 VIEW LT 10/13/2018 2:35 PM. TECHNIQUE: 3 views. FINDINGS: Bones: Normal. No fractures or bone lesions. Joints: Normal. No subluxations. Soft Tissues: Normal. No soft tissue swelling. IMPRESSION: Normal foot radiography. RADIA
== END 2019-08-28 11:01 | disposition home or self-care (01) ==
LOC: DI 11:00
PROVIDERS: ATTEND Podiatrist
DX: M79.672 Pain in left foot (principal)

== ENCOUNTER 2019-09-10 13:19 | Outpatient (CLI) | payer MEDICARE, MEDICAID ==
--- NOTE | 2019-09-11 10:21 | DEXA Report ---
Reason: POSTMENOPAUSAL Procedure Date: 09/10/2019 Accession Number: [id number] / [id number] Procedure: DEX - Dexa Spine and/or Hip CPT Code: Final Report FULL RESULT: EXAM: Dexa Spine and/or Hip DATE: 09/10/2019 1:48 PM CLINICAL HISTORY: POSTMENOPAUSAL TECHNIQUE: Dual energy x-ray absorptiometry (DXA) was performed on a [employer] System. Regions measured are the AP Spine, femoral neck, and if needed forearm. COMPARISON: None. In accordance with the International Society for Clinical Densitometry (ISCD) guidelines, data from previous exams may be reanalyzed using current recommendations and techniques. This is done to allow a more accurate basis for comparison with the current study. FINDINGS: The data for the lumbar spine is as follows: BMD (g/cm/cm) T-SCORE Z-SCORE REGION L1 0.840 -2.4 -1.7 L2 0.935 -2.2 -1.5 L3 0.981 -1.8 -1.1 L4 1.081 -1.0 -0.3 TOTAL 0.960 -1.8 -1.2 NOTE: All evaluable vertebrae are used for classification The data for the hip is as follows: BMD (g/cm/cm) T-SCORE Z-SCORE REGION Neck 0.754 -2.0 -1.1 TOTAL 0.741 -2.1 -1.5 NOTE: The femoral neck or total proximal femur, whichever is lowest, is used for classification. IMPRESSION: THE WHO CLASSIFICATION BASED ON THE INTERNATIONAL REFERENCE STANDARD IS OSTEOPENIA. THE FRACTURE RISK IS INCREASED. RECOMMENDATION: Patients with diagnosis of osteoporosis or osteopenia should have regular bone mineral density assessment. For those eligible for Medicare, routine testing is allowed once every 2 years. Testing frequency can be increased for patients who have rapidly progressing disease or for those who are receiving medical therapy to restore bone mass. COMMENT: World Health Organization (WHO) definitions for osteoporosis and osteopenia: NORMAL BMD: T-score at -1.0 or higher, fracture risk is low OSTEOPENIA BMD: T-score between -1.0 and -2.5, fracture risk is increased. OSTEOPOROSIS BMD: T-score at -2.5 or lower, fracture risk is high. National Osteoporosis Foundation recommends: 1. Obtain adequate dietary calcium (at least 1200 mg per day) and vitamin D (400-800 international units per day). 2. Participate, as appropriate, in regular weightbearing and muscle-strengthening exercise. 3. Avoid tobacco use and reduce alcohol and caffeine intake. 4. For more detailed information see the website at www.NOF.org.
== END 2019-09-10 13:20 | disposition home or self-care (01) ==
LOC: DI 13:19
PROVIDERS: ATTEND Physician Assistant Medical
DX: Z78.0 Asymptomatic menopausal state (principal); M85.89 Other specified disorders of bone density and structure, multiple sites
CPT/HCPCS: 77080

== ENCOUNTER 2019-11-17 09:56 | Outpatient (CLI) | payer MEDICARE, MEDICAID ==
[2019-11-17 13:43] LABS: BASOPHILS # (AUTO) 0.1 10^3/uL (0.0-0.1); BASOPHILS % (AUTO) 0.5 %; EOSINOPHILS # (AUTO) 0.3 10^3/uL (0.0-0.7); EOSINOPHILS % (AUTO) 3.4 %; HGB - HEMOGLOBIN 11.8 g/dL (12.0-16.0); LYMPHOCYTES # (AUTO) 1.9 10^3/uL (1.5-3.5); LYMPHOCYTES % (AUTO) 19.8 %; MEAN CORPUSCULAR HEMOGLOBIN 31.6 pg (27.0-31.0); MEAN CORPUSCULAR HGB CONC 32.9 g/dL (32.0-36.0); MEAN CORPUSCULAR VOLUME 96.2 fL (81.0-99.0); MEAN PLATELET VOLUME 9.2 fL (7.9-10.8); MONOCYTES # (AUTO) 0.8 10^3/uL (0.0-1.0); NEUTROPHILS # (AUTO) 6.3 10^3/uL (1.5-6.6); PLT - PLATELET COUNT 275 10^3/uL (130-450); RED BLOOD COUNT 3.73 10^6/uL (4.20-5.40); RED CELL DISTRIBUTION WIDTH 13.2 % (12.0-15.0); WHITE BLOOD COUNT 9.3 x10^3/uL (4.8-10.8)
[2019-11-17 14:20] LABS: ALBUMIN/GLOBULIN RATIO 1.2 (1.0-2.2); BILIRUBIN,TOTAL 0.4 mg/dL (0.2-1.0); CALCIUM 9.1 mg/dL (8.5-10.3); CREATININE 0.6 mg/dL (0.4-1.0); TOTAL PROTEIN 7.3 g/dL (6.7-8.2)
[2019-11-17 14:23] LABS: FERRITIN 46.4 ng/mL (11.0-306.8)
== END 2019-11-17 23:59 | disposition home or self-care (01) ==
LOC: LAB.WCP 09:56
PROVIDERS: ATTEND Physician Assistant Medical
DX: E16.2 Hypoglycemia, unspecified (principal); D64.9 Anemia, unspecified
CPT/HCPCS: 36415; 80053; 82607; 82728; 85025

== ENCOUNTER 2020-01-08 13:03 | Emergency (ER) | payer MEDICARE, MEDICAID ==
[2020-01-08 13:13] VITALS: BP 105/64
[2020-01-08] MEDS ORDERED: BACITRACIN ZINC OINT 1 PACKET TOP STA (13:58)
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
== END 2020-01-08 14:10 | disposition home or self-care (01) ==
LOC: ED 13:03
DX: S51.832A Puncture wound without foreign body of left forearm, initial encounter (principal); W27.1XXA Contact with garden tool, initial encounter; Y93.H2 Activity, gardening and landscaping; Y92.007 Garden or yard of unspecified non-institutional (private) residence as the place of occurrence of the external cause
CPT/HCPCS: 99281; 99282; A9270

== ENCOUNTER 2020-06-16 09:00 | Outpatient (CLI) | payer MEDICARE, MEDICAID ==
--- OUTSIDE RECORDS SUMMARY | 2020-06-21 14:42 | EXTERNAL MEDICAL SUMMARY RPT | Continuity of Care Document ---
:1965 Demographics Phone Unavailable Preferred Language Unknown Marital Status Unknown Scientologist Affiliation Unknown Race Unknown Ethnic Group Unknown Author Organization [place] Address [address] [place] [address] Phone Care Team Providers Name Role Phone Young Unavailable Unavailable Problems date description facility Finding [facility] 2017-10-28 14:04 Unspecified mood [affective] disorder [facility] Allergies date description facility [facility] NO KNOWN ALLERGIES [facility] Medications date description facility 2010-12-27 00:00:00 Piroxicam 20 MG Oral Capsule [Feldene] [facility] 2010-12-27 00:00:00 Cyclobenzaprine hydrochloride 10 MG Or al [facility] Tablet 2010-12-27 00:00:00 Trazodone Hydrochloride 50 MG Oral [facility] 2012-12-03 00:00:00 Acyclovir 200 MG Oral [facility] 2012-12-03 00:00:00 Fluoxetine 10 MG Oral Capsule [Prozac] [facility] 2012-12-03 00:00:00 pregabalin 25 MG [facility] 2012-12-03 00:00:00 Naproxen sodium 220 MG Oral Tablet [facility] 2016-02-17 00:00:00 Trazodone Hydrochloride 50 MG Oral [facility] 2016-04-10 00:00:00 gabapentin 300 MG Oral Capsule [Neuron tin] [facility] 2016-04-10 00:00:00 Fluoxetine 20 MG [facility] 2016-04-10 00:00:00 Propranolol Hydrochloride [address] [facility] 2016-04-17 00:00:00 Fluoxetine 20 MG Oral [facility] 2016-04-17 00:00:00 Propranolol Hydrochloride 10 MG Oral [facility] 2016-04-17 00:00:00 Amitriptyline Hydrochloride 25 MG [facility] Tablet 2016-07-31 00:00:00 Amitriptyline Hydrochloride 25 MG [facility] Tablet 2016-08-02 00:00:00 Cholecalciferol 2000 UNT [facility] 2016-08-31 00:00:00 Propranolol Hydrochloride [address] [facility] 2016-09-12 00:00:00 gabapentin 300 MG Oral Capsule [Neuron tin] [facility] 2016-09-12 00:00:00 Fluoxetine 20 MG [facility] 2016-09-12 00:00:00 Trazodone Hydrochloride 50 MG Oral [facility] 2016-09-12 00:00:00 Amitriptyline Hydrochloride 25 MG [facility] Tablet 2016-09-25 00:00:00 gabapentin 300 MG Oral Capsule [Neuron tin] [facility] 2016-09-25 00:00:00 Trazodone Hydrochloride 50 MG Oral [facility] 2016-09-25 00:00:00 Amitriptyline Hydrochloride 50 MG [facility] Tablet 2016-10-01 00:00:00 Trazodone Hydrochloride 100 MG Oral [facility] 2016-10-01 00:00:00 Amitriptyline Hydrochloride 50 MG [facility] Tablet 2017-01-02 00:00:00 gabapentin 300 MG Oral Capsule [Neuron tin] [facility] 2017-01-30 00:00:00 Trazodone Hydrochloride 100 MG Oral [facility] 2017-01-30 00:00:00 Amitriptyline Hydrochloride 50 MG [facility] Tablet 2017-03-28 00:00:00 Fluoxetine 20 MG [facility] 2017-06-18 00:00:00 Fluoxetine 20 MG [facility] 2017-06-18 00:00:00 Trazodone Hydrochloride 100 MG [facility] 2017-06-18 00:00:00 Amitriptyline Hydrochloride 50 MG [facility] Tablet 2017-07-25 00:00:00 gabapentin 300 MG Oral Capsule [Neuron tin] [facility] 2017-09-27 00:00:00 gabapentin 300 MG Oral Capsule [Neuron tin] [facility] 2017-09-27 00:00:00 Fluoxetine 20 MG [facility] 2017-09-27 00:00:00 Trazodone Hydrochloride 100 MG Oral [facility] 2017-09-27 00:00:00 Amitriptyline Hydrochloride 50 MG [facility] Tablet 2018-02-06 00:00:00 meloxicam 15 MG Oral Tablet [facility] 2018-02-06 00:00:00 Fluoxetine 20 MG [facility] 2018-02-06 00:00:00 duloxetine 20 MG [facility] 2018-02-06 00:00:00 Trazodone Hydrochloride 100 MG Oral [facility] 2018-02-06 00:00:00 Amitriptyline Hydrochloride 50 MG Oral [facility] Tablet 2018-02-06 00:00:00 Dicyclomine Hydrochloride 10 MG Oral [facility] 2018-02-12 00:00:00 duloxetine 20 MG [facility] 2018-03-18 00:00:00 Fluoxetine 20 MG Oral [facility] 2018-04-01 00:00:00 Fluoxetine 20 MG Oral [facility] 2018-05-13 00:00:00 Fluoxetine 20 MG Oral [facility] 2018-09-05 00:00:00 Fluoxetine 20 MG [facility] 2018-09-05 00:00:00 Trazodone Hydrochloride 100 MG Oral [facility] 2019-02-10 00:00:00 Fluoxetine 20 MG [facility] 2019-02-10 00:00:00 Trazodone Hydrochloride 100 MG Oral [facility] 2019-03-05 00:00:00 Ondansetron 4 MG Disintegrating Tablet [facility] 2019-03-05 00:00:00 Acetaminophen 325 MG / butalbital 50 M G / [facility] Caffeine 40 MG Oral Tablet 2019-03-16 00:00:00 Trazodone Hydrochloride 100 MG Oral [facility] 2019-10-02 00:00:00 Trazodone Hydrochloride 100 MG Oral [facility] 2019-10-14 00:00:00 meloxicam 15 MG Oral Tablet [facility] 2019-10-14 00:00:00 Acyclovir 200 MG Oral [facility] 2019-10-14 00:00:00 Propranolol Hydrochloride 10 MG Oral [facility] 2019-10-14 00:00:00 Dicyclomine Hydrochloride 10 MG Oral [facility] 2019-11-03 00:00:00 Fluoxetine 20 MG Oral [facility] 2019-12-10 00:00:00 Propranolol Hydrochloride 10 MG Oral [facility] 2020-03-11 00:00:00 Propranolol Hydrochloride 10 MG Oral [facility] 2020-04-01 00:00:00 Fluoxetine 20 MG Oral [facility] 2020-04-01 00:00:00 Trazodone Hydrochloride 100 MG Oral [facility] Results test status date ordered by attending specimen natty e null F 2020-06-16 09:00:00 [email or web address].01 M Ramona 202 12:39:00 facility observation status value reference units lab abnor mal line notes range code [facility] F NEGATIVE unknown [facility] - Report scanned to Patient' s EMR. Testing perform[facility] d at [facility] History date description facility [id number]
== END 2020-06-16 23:59 | disposition home or self-care (01) ==
LOC: COV 09:00
PROVIDERS: ATTEND Surgery
DX: Z01.812 Encounter for preprocedural laboratory examination (principal); Z20.828 Contact with and (suspected) exposure to other viral communicable diseases; K40.90 Unilateral inguinal hernia, without obstruction or gangrene, not specified as recurrent

== ENCOUNTER 2020-06-20 07:18 | Day surgery (SDC) | payer MEDICARE, MEDICAID ==
[2020-06-20] MEDS ORDERED: ceFAZolin 2 GM/50 ML 2 GM/50 ML BAG IV ONE (07:19)
[2020-06-20] MEDS ORDERED: LACTATED RINGERS 1,000 ML IV ONE ×2 (07:48→11:15)
--- NOTE | 2020-06-20 08:24 | ANESTHESIA ---
Pre-Anesthesia VS, & Labs - Diagnosis recurrent right inguinal hernia - Procedure right inguinal hernia repair Height: 5 ft 6 in Weight (kg): 72.8 kg Body Mass Index: 25.9 BMI Classification: Overweight - NPO >8 hours - Is Patient ?: No Home Medications and Allergies Acyclovir [Zovirax] 200 mg PO BID 11/24/15 traZODone [Desyrel] 200 mg PO DAILY PM 11/24/15 FLUoxetine [PROzac] 20 mg PO TID 09/02/16 Albuterol Sulf [Ventolin Hfa Inhaler] 1 - 2 puffs INH Q4HR PRN 02/11/19 Butalbital/Aspirin/Caffeine [Qumwjnkkev-ROW-Cvqftrdh Cap] 1 - 2 each PO Q4HR PRN 02/11/19 Cyclobenzaprine HCl 10 mg PO TID PRN 02/11/19 Dicyclomine HCl 1 - 2 cap PO QID PRN 02/11/19 Fluticasone [Flonase] 1 sprays DESHAWN BID 02/11/19 Meloxicam 7.5 mg PO BID PRN 02/11/19 Allergies/Adverse Reactions: Allergies Allergy/AdvReac Type Severity Reaction Status Date / Time morphine Allergy Itching Verified 01/29/18 09:01 adhesive AdvReac Rash Verified 02/11/19 10:53 Anes History & Medical History - Anesthetic History Anesthesia Complications: reports: No previous complications - Medical History Cardiovascular: reports: None Pulmonary: reports: None Gastrointestinal: reports: Diverticulitis, Other (IBS) Urinary: reports: None Neuro: reports: Migraines Musculoskeletal: reports: Osteoarthritis, Chronic back pain, Other (Gideon Danlos. Right frozen shoulder) Endocrine/Autoimmune: reports: None Blood Disorders: reports: None Skin: reports: Rosacea Smoking Status: Never smoker Psychosocial: reports: Cannabis (daily smoker) - Surgical History General: Cholecystectomy, Colonoscopy Gynecologic: Hysterectomy Orthopedic: Spine surgery (ACDF C,4,5,6) Exam General: Alert, Oriented x3, Cooperative, No acute distress Dental: WNL Mouth Openin Fingerbreadth Neck Mobility: Normal Mallampati classification: I Thyromental Distance: less than 4 cm Mental/Cognitive Status: Alert/Oriented X3, Normal for patient Plan Anesthesia Type: General Consent for Procedure(s) Verified and Reviewed: Yes Code Status: Attempt Resuscitation ASA classification: 2-Mild systemic disease Is this case an emergency?: No
[2020-06-20] MEDS ORDERED: LIDOCAINE 1%-EPI 1:100000 20 ML MDV ONE (09:54)
[2020-06-20] MEDS ORDERED: ceFAZolin 1 GM VIAL ONE (09:54)
[2020-06-20] MEDS ORDERED: BUPIVACAINE 0.5% PF 30 ML VIAL ONE (09:54)
[2020-06-20] MEDS ORDERED: SODIUM CHLORIDE 0.9% 10 ML ONE (09:54)
[2020-06-20] MEDS ORDERED: PROPOFOL 200 MG/20 ML VIAL IVP ONE (10:03)
[2020-06-20] MEDS ORDERED: LIDOCAINE-MPF 2% 5 ML VIAL ONE (10:03)
[2020-06-20] MEDS ORDERED: ONDANSETRON 4 MG/2 ML VIAL ONE (10:04)
[2020-06-20] MEDS ORDERED: DEXAMETHASONE 4 MG/ML VIAL ONE (10:04)
[2020-06-20] MEDS ORDERED: fentaNYL 100 MCG/2 ML VIAL ONE (10:05)
[2020-06-20] MEDS ORDERED: ceFAZolin 1 GM VIAL IR ONE (10:05)
[2020-06-20] MEDS ORDERED: LIDOCAINE 1%-EPI 1:100000 30 ML MDV SUBQ ONE ×2 (10:05→10:52)
[2020-06-20] MEDS ORDERED: BUPIVACAINE 0.5% PF 30 ML VIAL SUBQ ONE ×2 (10:05→10:52)
[2020-06-20] MEDS ORDERED: MIDAZOLAM 2 MG/2 ML VIAL ONE (10:05)
[2020-06-20] MEDS ORDERED: SODIUM CHLORIDE FLUSH 0.9% 10 ML SYRINGE IVP ONE (10:10)
[2020-06-20] MEDS ORDERED: ACETAMINOPHEN 325 MG TABLET PO PRN (11:16)
[2020-06-20] MEDS ORDERED: ONDANSETRON 4 MG/2 ML VIAL IVP PRN ×2 (11:16→11:25)
[2020-06-20] MEDS ORDERED: IBUPROFEN 600 MG TABLET PO PRN (11:16)
[2020-06-20] MEDS ORDERED: oxyCODONE 5 MG TABLET PO PRN (11:16)
--- NOTE | 2020-06-20 11:16 | OPERATIVE REPORT ---
Operative Report - General Procedure Date: 06/20/20 Planned Procedure: Repair of recurrent right inguinal hernia Pre-Op Diagnosis: Recurrent right inguinal hernia Procedure Performed: Repair of direct right inguinal hernia Post Op Diagnosis: Direct Right inguinal hernia - Procedure Note Primary Surgeon: Ramona Anesthesia Provider: NICANOR Gracia Anesthesia Technique: General LMA, Local, Regional block Pathology: None Estimated Blood Loss (mL): 5 Indications: Symptomatic recurrence of right inguinal hernia Findings: Direct right inguinal hernia Complications: None apparent - Other Other Information/Narrative: After obtaining informed consent, the patient is brought to the operating room and placed in the supine position on the operating table. Following successful induction of general endotracheal anesthesia, appropriate padding of all bony prominences, and placement of appropriate monitors, the abdomen was prepped and draped in the standard surgical fashion. A timeout was held per scope protocol. All elements of the surgical safety checklist were followed before, during, and after the procedure. We began the procedure by infiltrating a mixture of local anesthetics medial to the anterior superior iliac spine on the right. This was done to create an ileal inguinal nerve block. We then selected a site for an incision in the right lower quadrant just superior and lateral to the right pubic tubercle. This was at the scar from the previous repair. This area was anesthetized with additional local anesthetic and an incision was created here.The incision was carried down through the skin and subcutaneous tissue to reveal the fascia of the external oblique aponeurosis. Retractor was placed and the aponeurosis was opened in direction of its fibers. The previously placed mesh was intact. Examination revealed a defect at the lateral edge of the mesh that continued directly into the abdomen. The existion mesh was palpated internally and remained in good position. No attempt was made to remove or replace the existing mesh. We elected to repair the hernia with another large Prolene hernia system mesh implant. This was dipped in Ancef containing solution and then deployed into the defect. The posterior leaflet was straightened and flattened in the preperitoneal space. This posterior leflet of the mesh was tacked to the mesh placed through the indirect opening at the time of the first operation. The inferior aspect of the anterior leaflet was then sewn to Shan's ligament medially. Laterally it was tucked under the external beak aponeurosis. The anterior leaflet of the new mesh was then tacked to the anterior leaflet of the existing mesh laterally. The wound was checked for hemostasis and irrigated with warm saline solution. It was aspirated free of all fluid and particulate matter. The extra oblique aponeurosis was then closed with a running locking Vicryl suture Aiden's fascia was closed with Vicryl suture and Monocryl stitches were placed in the skin. All sponge, needle, and instrument counts were correct at the conclusion of the case. The patient was allowed awaken from anesthesia without difficulty and taken to the postanesthesia care unit in good condition.
[2020-06-20] MEDS ORDERED: NALOXONE 0.4 MG/ML VIAL IVP PRN (11:25)
[2020-06-20] MEDS ORDERED: fentaNYL 100 MCG/2 ML VIAL IVP PRN (11:25)
[2020-06-20] MEDS ORDERED: HYDROmorphone 0.5 MG/0.5 ML SYRINGE IVP PRN (11:25)
[2020-06-20] MEDS ORDERED: ATROPINE ABBOJECT 1 MG/10 ML SYRINGE IVP PRN (11:25)
[2020-06-20] MEDS ORDERED: GI COCKTAIL 120 ML BOTTLE PO ONE (11:34)
[2020-06-20] MEDS: LORazepam 2 MG/ML VIAL IVP ONE ×2 (11:39→11:43)
[2020-06-20] MEDS ORDERED: LACTATED RINGERS 1,000 ML IV SCH (12:00)
[2020-06-20 12:41] VITALS: BP 132/68
--- NOTE | 2020-06-20 15:15 | ANESTHESIA POST OP EVALUATION ---
Anesthesia Post Eval - Post Anesthesia Eval Vitals: Last Vital Signs Temp 36.6 C 06/20/20 12:30 Pulse 69 06/20/20 12:30 Resp 16 06/20/20 12:30 BP 132/68 H 06/20/20 12:30 Pulse Ox 98 06/20/20 12:30 CV Function Including HR & BP: positive: Stable Pain Control: positive: Satisfactory Nausea & Vomiting: positive: Negative Mental Status: positive: Baseline Respiratory Status: Airway Patent Hydration Status: Satisfactory Anesthesia Complications: positive: None - Other Details/Therapies Other Details/Therapies: Patient had an episode of epigastric/chest pain immediately post op. EKG was obtained which showed SR with no ST changes/elevation or depression. EKG and case was reviewed with hospitalist and surgeon. Patient was given 0.5mg ativan and a GI cocktail with pain resolving immediately afterwards. She went on to have an uneventful recovery.
== END 2020-06-20 07:19 | disposition home or self-care (01) ==
LOC: SDS 07:18
PROVIDERS: ATTEND Surgery
PROC: 0YU50JZ Supplement Right Inguinal Region with Synthetic Substitute, Open Approach (ICD-10-PCS; principal; 2020-06-20 08:30)
DX: K40.91 Unilateral inguinal hernia, without obstruction or gangrene, recurrent (principal); K58.9 Irritable bowel syndrome, unspecified; F50.2 Bulimia nervosa; K57.30 Diverticulosis of large intestine without perforation or abscess without bleeding; D64.9 Anemia, unspecified; M43.12 Spondylolisthesis, cervical region; M54.12 Radiculopathy, cervical region; Q79.60 Ehlers-Danlos syndrome, unspecified; F43.10 Post-traumatic stress disorder, unspecified; F12.10 Cannabis abuse, uncomplicated; F42.9 Obsessive-compulsive disorder, unspecified; F60.3 Borderline personality disorder; F31.9 Bipolar disorder, unspecified; F41.9 Anxiety disorder, unspecified; M75.01 Adhesive capsulitis of right shoulder; Z98.1 Arthrodesis status; Z87.891 Personal history of nicotine dependence; Z79.899 Other long term (current) drug therapy; Z79.51 Long term (current) use of inhaled steroids
CPT/HCPCS: 49520; 93005; A9270; C1781; J0690; J2060; J7120

== ENCOUNTER 2020-10-05 09:20 | Outpatient (CLI) | payer MEDICARE, MEDICAID ==
--- NOTE | 2020-10-06 12:51 | Mammography Report ---
BILATERAL DIGITAL SCREENING MAMMOGRAM 3D/2D: 10/05/2020 CLINICAL: Routine screening. Comparison is made to exams dated: 11/10/2014 mammogram, 11/19/2013 mammogram, 10/26/2011 mammogram, an d 08/02/2010 mammogram - [facility]. There are scattered fibroglandular elements in both breasts. There are benign calcifications in both breasts. No significant masses, calcifications, or other findings are seen in either breast. There has been no significant interval change. IMPRESSION: BENIGN There is no mammographic evidence of malignancy. A 1 year screening mammogram is recommended. This exam was interpreted at Station ID: [id number]. NOTE: For mammograms, a report in lay terms will be sent to the patient. Approximately 15% of breast malignancies will not be visualized mammographically. In the management of a palpable breast mass, a negative mammogram must not discourage biopsy of a clinically suspicious lesion. Electronically Signed By: Dat Craft M.D. ddp/penrad:10/05/2020 12:30:08 ACR BI-RADS Category 2: Benign Finding(s) 3342F PARENCHYMAL PATTERN: (A) - The breast(s) demonstrate(s) scattered fibroglandular densities. BI-RADS CATEGORY: (2) - 2 RECOMMENDATION: (ANNUAL) - Recommend routine annual screening mammography. [id number] 1 year screening LATERALITY: (B)
== END 2020-10-05 09:21 | disposition home or self-care (01) ==
LOC: DI.N 09:20
DX: Z12.31 Encounter for screening mammogram for malignant neoplasm of breast (principal)

== ENCOUNTER 2020-10-27 08:00 | Outpatient (CLI) | payer MEDICARE, MEDICAID | END 2020-10-27 23:59 | disposition home or self-care (01) | LOC: LAB.N 08:00 | PROVIDERS: ATTEND Nurse Practitioner | DX: J18.9 Pneumonia, unspecified organism (principal); Z20.822 Contact with and (suspected) exposure to COVID-19 ==

== ENCOUNTER 2020-10-31 07:35 | Outpatient (CLI) | payer MEDICARE, MEDICAID ==
[2020-10-31 11:49] LABS: BASOPHILS % (AUTO) 0.5 %; EOSINOPHILS # (AUTO) 0.2 10^3/uL (0.0-0.7); EOSINOPHILS % (AUTO) 4.3 %; HGB - HEMOGLOBIN 12.6 g/dL (12.0-16.0); LYMPHOCYTES # (AUTO) 1.7 10^3/uL (1.5-3.5); LYMPHOCYTES % (AUTO) 30.3 %; MEAN CORPUSCULAR HEMOGLOBIN 31.3 pg (27.0-31.0); MEAN CORPUSCULAR HGB CONC 32.3 g/dL (32.0-36.0); MEAN PLATELET VOLUME 9.8 fL (7.9-10.8); MONOCYTES # (AUTO) 0.5 10^3/uL (0.0-1.0); MONOCYTES % (AUTO) 8.7 %; NEUTROPHILS # (AUTO) 3.2 10^3/uL (1.5-6.6); PLT - PLATELET COUNT 267 10^3/uL (130-450); RED BLOOD COUNT 4.02 10^6/uL (4.20-5.40); RED CELL DISTRIBUTION WIDTH 12.3 % (12.0-15.0); WHITE BLOOD COUNT 5.6 x10^3/uL (4.8-10.8)
[2020-10-31 11:50] LABS: ALBUMIN 4.3 g/dL (3.2-5.5); ALBUMIN/GLOBULIN RATIO 1.4 (1.0-2.2); BILIRUBIN,TOTAL 0.3 mg/dL (0.2-1.0); CALCIUM 9.6 mg/dL (8.5-10.3); CREATININE 0.6 mg/dL (0.4-1.0); POTASSIUM 4.1 mmol/L (3.5-5.0); TOTAL PROTEIN 7.4 g/dL (6.7-8.2)
== END 2020-10-31 07:36 | disposition home or self-care (01) ==
LOC: LAB.N 07:35
PROVIDERS: ATTEND Physician Assistant Medical
DX: E16.2 Hypoglycemia, unspecified (principal); D64.9 Anemia, unspecified
CPT/HCPCS: 36415; 80048; 80053; 85025

== ENCOUNTER 2020-11-10 11:30 | Outpatient (CLI) | payer MEDICARE, MEDICAID ==
--- NOTE | 2020-11-10 14:22 | XRAY Report ---
PROCEDURE: Chest 2 View X-Ray INDICATIONS: WALKING PNEUMONIA TECHNIQUE: 2 view(s) of the chest. COMPARISON: 02/11/2019. FINDINGS: Surgical changes and devices: Fusion hardware in visualized lower lumbar spine is seen.. Lungs and pleura: No pleural effusions or pneumothorax. Increased interstitial reticular markings ar e noted with scarring/atelectasis in right lower lung field unchanged from 2019 study and suggestive of chronic process. No definite focal infiltrate. Mediastinum: Mediastinal contours are normal. Heart size is normal. Bones and chest wall: No suspicious bony abnormalities. Soft tissues appear unremarkable. IMPRESSION: Chronic lung parenchymal changes not significantly changed from 2019 study. No focal infi ltrate, pleural effusion or pneumothorax. Reviewed by: Radu Velasquez MD on 11/10/2020 2:21 PM PDT Approved by: Radu Velasquez MD on 11/10/2020 2:21 PM PDT Station ID: [id number]
== END 2020-11-10 23:59 | disposition home or self-care (01) ==
LOC: DI.N 11:30
PROVIDERS: ATTEND Family Medicine
DX: J18.9 Pneumonia, unspecified organism (principal); Z20.822 Contact with and (suspected) exposure to COVID-19
CPT/HCPCS: 71046; U0004

== ENCOUNTER 2020-11-21 08:00 | Outpatient (CLI) | payer MEDICARE, MEDICAID ==
[2020-11-21 21:14] LABS: BACTERIAL VAGINOSIS DNA NEGATIVE (NEGATIVE); CANDIDA GROUP DNA POSITIVE (NEGATIVE); CANDIDA KRUSEI DNA NEGATIVE (NEGATIVE); TRICHOMONAS VAGINALIS DNA NEGATIVE (NEGATIVE)
[2020-11-21 21:15] LABS: CANDIDA GLABRATA DNA NEGATIVE (NEGATIVE)
== END 2020-11-21 23:59 | disposition home or self-care (01) ==
LOC: LAB.N 08:00
PROVIDERS: ATTEND Family Medicine
DX: N76.0 Acute vaginitis (principal)
CPT/HCPCS: 87661; 87801

== ENCOUNTER 2021-03-27 11:12 | Emergency (ER) | payer MEDICARE, MEDICAID ==
[2021-03-27] MEDS ORDERED: LORazepam 2 MG/ML VIAL IVP STA (13:21)
[2021-03-27] MEDS ORDERED: KETAMINE 30 MG in SODIUM CHLORIDE 0.9% 100ML 100 ML IV STA (13:21)
--- NOTE | 2021-03-27 13:24 | ED Physician Documentation ---
PD HPI ABD PAIN - Stated complaint Stated Complaint: SWELLING THROAT - Chief complaint Chief Complaint: Abd Pain - History obtained from History obtained from: Patient - Additional information Additional information: 56-year-old woman who has now chronic abdominal pain. It is daily pain in the epigastrium, left mid and left lower quadrant. She has had an upper endoscopy recently which showed a hiatal hernia but otherwise no causative issues. Does get helped with dicyclomine by has had no help with PPIs. The pain has exacerbated her mental ill health issues and causes a globus sensation espec ially associated with postnasal drip and fleeting thoughts of suicide without plan. PD PAST MEDICAL HISTORY - Past Medical History Cardiovascular: None Respiratory: None Neuro: Migraines Endocrine/Autoimmune: None GI: Diverticulitis, Other : None HEENT: Chronic vision loss Psych: Depression, Anxiety, Bipolar disorder, Panic attacks, ADD/ADHD, Post traumatic stress disorder, Obsessive compulsive disorder Musculoskeletal: Osteoarthritis, Chronic back pain, Other (Gideon Danlos. 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,4,5,6) /BIOLOGY INTERNSHIP: Hysterectomy - Present Medications Home Medications: Ambulatory Orders Medication Instructions Recorded Confirmed Acyclovir [Zovirax] 200 mg PO BID 11/24/15 06/20/20 traZODone [Desyrel] 200 mg PO DAILY PM 11/24/15 06/20/20 FLUoxetine [PROzac] 20 mg PO TID 09/02/16 06/20/20 Albuterol Sulf [Ventolin Hfa 1 - 2 puffs INH Q4HR PRN 02/11/19 06/14/20 Inhaler] Butalbital/Aspirin/Caffeine 1 - 2 each PO Q4HR PRN 02/11/19 06/14/20 [Spbamymqxi-ZMO-Yguqjntt Cap] Cyclobenzaprine HCl 10 mg PO TID PRN 02/11/19 06/20/20 Dicyclomine HCl 1 - 2 cap PO QID PRN 02/11/19 06/20/20 Fluticasone [Flonase] 1 sprays DESHAWN BID 02/11/19 06/14/20 Meloxicam 7.5 mg PO BID PRN 02/11/19 06/20/20 Ondansetron Odt [Zofran Odt] 4 mg TL Q6H PRN #20 tablet 06/20/20 methocarbamoL [Robaxin] 500 mg PO Q6H PRN #30 tablet 06/20/20 oxyCODONE [Roxicodone] 5 mg PO Q4-6H PRN #20 tablet 06/20/20 Pregabalin [Lyrica] 75 mg PO BID #60 cap 09/12/20 Pregabalin [Lyrica] 75 mg PO BID #60 cap 09/16/20 Amitriptyline [Elavil] 25 mg PO HS #30 tablet 03/27/21 Mometasone Furoate [Nasonex] 1 spray NS BID #1 bottle 03/27/21 - Allergies Allergies/Adverse Reactions: Allergies Allergy/AdvReac Type Severity Reaction Status Date / Time morphine Allergy Itching Verified 03/27/21 11:37 adhesive AdvReac Rash Verified 03/27/21 11:37 - Social History Does the pt smoke?: No Smoking Status: Never smoker Does the pt drink ETOH?: Yes Does the pt have substance abuse?: No - Immunizations Immunizations are current?: Yes - POLST Patient has POLST: No Results - Vitals Vitals: Vital Signs - 24 hr 03/27/21 03/27/21 03/27/21 11:29 13:36 15:00 Temperature 36.2 C L Heart Rate 63 51 L 56 L Respiratory 16 16 14 Rate Blood Pressure 144/79 H 130/75 109/58 L O2 Saturation 97 99 100 Oxygen O2 Source Room air - Labs Labs: Laboratory Tests 03/27/21 03/27/21 03/27/21 13:14 13:40 13:40 WBC 9.1 RBC 3.98 L Hgb 12.7 Hct 37.9 MCV 95.2 MCH 31.9 H MCHC 33.5 RDW 11.9 L Plt Count 252 MPV 9.4 Neut # (Auto) 5.6 Lymph # (Auto) 2.7 [place] # (Auto) 0.6 Eos # (Auto) 0.2 Baso # (Auto) 0.0 Absolute Nucleated RBC 0.00 Nucleated RBC % 0.0 Sodium 138 Potassium 3.6 Chloride 103 Carbon Dioxide 21 Anion Gap 14.0 H BUN 21 H Creatinine 0.7 Estimated GFR (MDRD) 87 L Glucose 95 Calcium 9.7 Total Bilirubin 0.7 AST 16 ALT 15 Alkaline Phosphatase 59 Total Protein 7.8 Albumin 4.6 Globulin 3.2 Albumin/Globulin Ratio 1.4 Lipase 26 Urine Color YELLOW Urine Clarity CLEAR Urine pH 7.0 Ur Specific [place] 1.010 Urine Protein NEGATIVE Urine Glucose (UA) NEGATIVE Urine Ketones NEGATIVE Urine Occult Blood SMALL H Urine Nitrite NEGATIVE Urine Bilirubin NEGATIVE Urine Urobilinogen 0.2 (NORMAL) Ur Leukocyte Esterase NEGATIVE Urine RBC 0-5 Urine WBC 0-3 Ur Squamous Epith Cells RARE Squamous Urine Bacteria Rare Urine Mucus Few Strands Ur Microscopic Review INDICATED Urine Culture Comments NOT INDICATED - Rads (name of study) CT abd / pelvis Radiology: EMP read contemporaneously PD MEDICAL DECISION MAKING - ED course ED course: 56-year-old woman with chronic abdominal pain previously attributed to IBS presents with basically a mental breakdown related to hopelessness and chronic pain with severe depression and fleeting SI without plan. I think that given the circumstances a ketamine infusion and peer p.m. amitriptyline she will get some relief. The CT was done showing hepatomegaly and diverticulosis without acute findings. Departure - Departure Disposition: 01 Home, Self Care Clinical Impression: Abdominal pain Qualifiers: Abdominal location: generalized Qualified Code(s): R10.84 - Generalized abdominal pain Condition: Good Record reviewed to determine appropriate education?: Yes Instructions: ED Chronic Pain Management, Chronic Pain Therapies Mind Body Prescriptions: Amitriptyline [Elavil] 25 mg PO HS #30 tablet Mometasone Furoate [Nasonex] 1 spray NS BID #1 bottle Comments: I am optimistic between the infusion of ketamine that we gave you today and the amitriptyline which should be taken at bedtime you will find some good relief to your chronic pain. You should still follow-up with Rosemarie Toribio as scheduled in a few weeks for recheck, give her an update on how you are pain is doing at that time. Return for new or worsening symptoms. Do not drive today.
[2021-03-27] MEDS ORDERED: IOVERSOL 320 100 ML VIAL IVP ONE ×2 (13:33→15:09)
[2021-03-27 13:44] LABS: BILIRUBIN,URINE NEGATIVE (NEGATIVE); GLUCOSE, URINE (UA) NEGATIVE (NEGATIVE); KETONES,URINE (UA) NEGATIVE (NEGATIVE); LEUKOCYTE ESTERASE, URINE NEGATIVE (NEGATIVE); NITRITE,URINE NEGATIVE (NEGATIVE); OCCULT BLOOD,URINE SMALL (NEGATIVE); PROTEIN,URINE NEGATIVE (NEGATIVE); UROBILINOGEN,URINE 0.2 (NORMAL) E.U./dL (NORMAL)
[2021-03-27 13:45] LABS: BASOPHILS % (AUTO) 0.3 %; EOSINOPHILS # (AUTO) 0.2 10^3/uL (0.0-0.7); EOSINOPHILS % (AUTO) 1.9 %; HCT - HEMATOCRIT 37.9 % (37.0-47.0); HGB - HEMOGLOBIN 12.7 g/dL (12.0-16.0); LYMPHOCYTES # (AUTO) 2.7 10^3/uL (1.5-3.5); LYMPHOCYTES % (AUTO) 29.2 %; MEAN CORPUSCULAR HEMOGLOBIN 31.9 pg (27.0-31.0); MEAN CORPUSCULAR HGB CONC 33.5 g/dL (32.0-36.0); MEAN CORPUSCULAR VOLUME 95.2 fL (81.0-99.0); MEAN PLATELET VOLUME 9.4 fL (7.9-10.8); MONOCYTES # (AUTO) 0.6 10^3/uL (0.0-1.0); MONOCYTES % (AUTO) 6.7 %; NEUTROPHILS # (AUTO) 5.6 10^3/uL (1.5-6.6); NEUTROPHILS % (AUTO) 61.7 %; PLT - PLATELET COUNT 252 10^3/uL (130-450); RED BLOOD COUNT 3.98 10^6/uL (4.20-5.40); RED CELL DISTRIBUTION WIDTH 11.9 % (12.0-15.0); WHITE BLOOD COUNT 9.1 x10^3/uL (4.8-10.8)
[2021-03-27 13:45] LABS: CLARITY,URINE CLEAR (CLEAR)
[2021-03-27 13:52] LABS: BACTERIA,URINE Rare /HPF (None Seen); MUCUS,URINE Few Strands; RBC,URINE 0-5 /HPF (0-5); SQUAMOUS EPITHELIAL CELL,UR RARE Squamous (<= Few); WBC,URINE 0-3 /HPF (0-5)
[2021-03-27 13:58] LABS: ALBUMIN 4.6 g/dL (3.2-5.5); ALBUMIN/GLOBULIN RATIO 1.4 (1.0-2.2); BILIRUBIN,TOTAL 0.7 mg/dL (0.2-1.0); CALCIUM 9.7 mg/dL (8.5-10.3); CREATININE 0.7 mg/dL (0.4-1.0); POTASSIUM 3.6 mmol/L (3.5-5.0); TOTAL PROTEIN 7.8 g/dL (6.7-8.2)
--- NOTE | 2021-03-27 15:19 | CT Report ---
PROCEDURE: Abdomen/Pelvis W INDICATIONS: IV only, L abd pain CONTRAST: IV CONTRAST: Optiray 320 ml: 100 PO CONTRAST: *NO PO CONTRAST TECHNIQUE: After the administration of IV contrast, 5 mm thick sections acquired from the diaphragms to the symp hysis. 5 mm thick coronal and sagittal reformats were acquired. For radiation dose reduction, the f ollowing was used: automated exposure control, adjustment of mA and/or kV according to patient size. COMPARISON: CT abdomen pelvis 12/26/2018 FINDINGS: Image quality: Excellent. ABDOMEN: Lung bases: Chronic peripheral reticular interstitial changes are present suggestive of fibrosis. Hea rt size is normal. Solid organs: Liver is mildly enlarged with steatosis. The spleen has normal in size and enhancement . Gallbladder has been removed Biliary system is non dilated. Pancreas enhances normally. No adre nal nodules. Kidneys demonstrate normal size and enhancement, without hydronephrosis. Peritoneum and bowel: Bowel loops demonstrate normal wall thickness and caliber. No free fluid or a ir. Minimal scattered colonic diverticula without inflammatory change. Nodes and vessels: No retroperitoneal or mesenteric adenopathy by size criteria. Aorta and inferior vena cava are normal in size. Miscellaneous: No ventral hernias. PELVIS: Genitourinary: Bladder wall thickness is normal. Miscellaneous: No inguinal hernias or adenopathy. Bones: No suspicious bony lesions. No vertebral body compression fractures. IMPRESSION: 1. Hepatomegaly with steatosis. 2. Diverticulosis. Reviewed by: Bere Barraza MD on 03/27/2021 3:18 PM PDT Approved by: Bere Barraza MD on 03/27/2021 3:18 PM PDT Station ID: [id number]
[2021-03-27 15:47] VITALS: BP 130/65
== END 2021-03-27 15:48 | disposition home or self-care (01) ==
LOC: ED 11:12
DX: R10.84 Generalized abdominal pain (principal); G89.29 Other chronic pain; F32.9 Major depressive disorder, single episode, unspecified; R45.851 Suicidal ideations; K76.0 Fatty (change of) liver, not elsewhere classified; K57.30 Diverticulosis of large intestine without perforation or abscess without bleeding; K44.9 Diaphragmatic hernia without obstruction or gangrene
CPT/HCPCS: 36415; 74177; 80053; 81001; 83690; 85025; 96365; 96375; 99284; J2060; Q9967; 81003; 87086

== ENCOUNTER 2021-07-23 08:00 | Outpatient (CLI) | payer MEDICARE, MEDICAID | END 2021-07-23 23:59 | disposition home or self-care (01) | LOC: LAB.N 08:00 | PROVIDERS: ATTEND Physician Assistant | DX: U07.1 COVID-19 (principal) ==

== ENCOUNTER 2021-11-21 11:13 | Emergency (ER) | payer MEDICARE, MEDICAID ==
[2021-11-21 11:47] LABS: BASOPHILS % (AUTO) 0.4 %; EOSINOPHILS % (AUTO) 0.4 %; HGB - HEMOGLOBIN 13.9 g/dL (12.0-16.0); LYMPHOCYTES # (AUTO) 2.7 10^3/uL (1.5-3.5); LYMPHOCYTES % (AUTO) 24.5 %; MEAN CORPUSCULAR HEMOGLOBIN 31.3 pg (27.0-31.0); MEAN CORPUSCULAR HGB CONC 34.8 g/dL (32.0-36.0); MEAN CORPUSCULAR VOLUME 90.1 fL (81.0-99.0); MEAN PLATELET VOLUME 9.3 fL (7.9-10.8); MONOCYTES # (AUTO) 0.7 10^3/uL (0.0-1.0); MONOCYTES % (AUTO) 6.2 %; NEUTROPHILS # (AUTO) 7.4 10^3/uL (1.5-6.6); NEUTROPHILS % (AUTO) 68.1 %; PLT - PLATELET COUNT 301 10^3/uL (130-450); RED BLOOD COUNT 4.44 10^6/uL (4.20-5.40); RED CELL DISTRIBUTION WIDTH 12.8 % (12.0-15.0); WHITE BLOOD COUNT 10.9 x10^3/uL (4.8-10.8)
[2021-11-21 12:01] LABS: ALBUMIN 4.6 g/dL (3.2-5.5); ALBUMIN/GLOBULIN RATIO 1.2 (1.0-2.2); BILIRUBIN,TOTAL 0.8 mg/dL (0.2-1.0); CALCIUM 10.1 mg/dL (8.5-10.3); CREATININE 0.7 mg/dL (0.4-1.0); TOTAL PROTEIN 8.4 g/dL (6.7-8.2)
[2021-11-21 12:16] LABS: BILIRUBIN,URINE NEGATIVE (NEGATIVE); CLARITY,URINE CLEAR (CLEAR); GLUCOSE, URINE (UA) NEGATIVE (NEGATIVE); KETONES,URINE (UA) 15 mg/dL (NEGATIVE); LEUKOCYTE ESTERASE, URINE NEGATIVE (NEGATIVE); NITRITE,URINE NEGATIVE (NEGATIVE); OCCULT BLOOD,URINE TRACE-INTA (NEGATIVE); PH,URINE 7.5 PH (5.0-7.5); PROTEIN,URINE NEGATIVE (NEGATIVE); UROBILINOGEN,URINE 0.2 (NORMAL) E.U./dL (NORMAL)
[2021-11-21] MEDS ORDERED: KETAMINE 30 MG in SODIUM CHLORIDE 0.9% 100ML 100 ML IV STA (12:41)
[2021-11-21] MEDS ORDERED: LORazepam 2 MG/ML VIAL IVP STA (12:41)
[2021-11-21] MEDS ORDERED: SODIUM CHLORIDE 0.9% 1,000 ML IV STA (12:42)
--- NOTE | 2021-11-21 12:43 | ED Physician Documentation ---
PD HPI ABD PAIN - Stated complaint Stated Complaint: PANIC ATTACK,ABD PX - Chief complaint Chief Complaint: Abd Pain - History obtained from History obtained from: Patient - Additional information Additional information: 56-year-old woman with IBS has been having a terrible time for the last couple of weeks. Lots of diarrhea and abdominal pain. States the last time she was this miserable a ketamine drip was very helpful. She is under a lot of stress because she yelled at her neighbor's kids yesterday and feels somewhat guilty about that. She had some dry heaving this morning but no vomiting. She has had a lot of diarrhea. Review of Systems Ten Systems: 10 systems reviewed and negative GI: reports: Abdominal Pain, Nausea, Diarrhea. denies: Constipation, Hematemesis, Bloody / black stool PD PAST MEDICAL HISTORY - Past Medical History Cardiovascular: None Respiratory: None Neuro: Migraines Endocrine/Autoimmune: None GI: Diverticulitis, Other : None HEENT: Chronic vision loss Psych: Depression, Anxiety, Bipolar disorder, Panic attacks, ADD/ADHD, Post traumatic stress disorder, Obsessive compulsive disorder Musculoskeletal: Osteoarthritis, Chronic back pain, Other (Gideon Danlos. 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 - Present Medications Home Medications: Ambulatory Orders Medication Instructions Recorded Confirmed Acyclovir [Zovirax] 200 mg PO BID 11/24/15 06/20/20 traZODone [Desyrel] 200 mg PO DAILY PM 11/24/15 06/20/20 FLUoxetine [PROzac] 20 mg PO TID 09/02/16 06/20/20 Albuterol Sulf [Ventolin Hfa 1 - 2 puffs INH Q4HR PRN 02/11/19 06/14/20 Inhaler] Butalbital/Aspirin/Caffeine 1 - 2 each PO Q4HR PRN 02/11/19 06/14/20 [Jdaohfzsvg-QCV-Iqtylgdn Cap] Cyclobenzaprine HCl 10 mg PO TID PRN 02/11/19 06/20/20 Dicyclomine HCl 1 - 2 cap PO QID PRN 02/11/19 06/20/20 Fluticasone [Flonase] 1 sprays DESHAWN BID 02/11/19 06/14/20 Meloxicam 7.5 mg PO BID PRN 02/11/19 06/20/20 Ondansetron Odt [Zofran Odt] 4 mg TL Q6H PRN #20 tablet 06/20/20 methocarbamoL [Robaxin] 500 mg PO Q6H PRN #30 tablet 06/20/20 oxyCODONE [Roxicodone] 5 mg PO Q4-6H PRN #20 tablet 06/20/20 Pregabalin [Lyrica] 75 mg PO BID #60 cap 09/12/20 Pregabalin [Lyrica] 75 mg PO BID #60 cap 09/16/20 Amitriptyline [Elavil] 25 mg PO HS #30 tablet 03/27/21 Mometasone Furoate [Nasonex] 1 spray NS BID #1 bottle 03/27/21 LORazepam [Ativan] 1 mg PO TID PRN #12 tablet 11/21/21 - Allergies Allergies/Adverse Reactions: Allergies Allergy/AdvReac Type Severity Reaction Status Date / Time morphine Allergy Itching Verified 11/21/21 11:22 adhesive AdvReac Rash Verified 11/21/21 11:22 - Social History Does the pt smoke?: No Smoking Status: Never smoker Does the pt drink ETOH?: Yes Does the pt have substance abuse?: No - Immunizations Immunizations are current?: Yes - POLST Patient has POLST: No PD ED PE NORMAL - Vitals Vital signs reviewed: Yes - General General: Alert and oriented X 3, Other (Tearful and hyperventilating) - Cardiac Cardiac: RRR, No murmur - Respiratory Respiratory: No respiratory distress, Clear bilaterally - Abdomen Abdomen: Normal bowel sounds, Soft, Non tender - Neuro Neuro: Alert and oriented X 3, Normal speech Results - Vitals Vitals: Vital Signs - 24 hr 11/21/21 11/21/21 11/21/21 11:22 11:25 13:25 Temperature 37.0 C 37.0 C Heart Rate 62 62 62 Respiratory 18 18 16 Rate Blood Pressure 109/77 109/77 130/66 O2 Saturation 98 98 100 Oxygen O2 Source Room air - Labs Labs: Laboratory Tests 11/21/21 11/21/21 11/21/21 11:35 11:44 11:44 WBC 10.9 H RBC 4.44 Hgb 13.9 Hct 40.0 MCV 90.1 MCH 31.3 H MCHC 34.8 RDW 12.8 Plt Count 301 MPV 9.3 Neut # (Auto) 7.4 H Lymph # (Auto) 2.7 [place] # (Auto) 0.7 Eos # (Auto) 0.0 Baso # (Auto) 0.0 Absolute Nucleated RBC 0.00 Nucleated RBC % 0.0 Sodium 137 Potassium 4.0 Chloride 106 Carbon Dioxide 16 L Anion Gap 15.0 H BUN 19 Creatinine 0.7 Estimated GFR (MDRD) 87 L Glucose 117 H Calcium 10.1 Total Bilirubin 0.8 AST 18 ALT 18 Alkaline Phosphatase 63 Total Protein 8.4 H Albumin 4.6 Globulin 3.8 Albumin/Globulin Ratio 1.2 Lipase 28 Urine Color YELLOW Urine Clarity CLEAR Urine pH 7.5 Ur Specific [place] 1.015 Urine Protein NEGATIVE Urine Glucose (UA) NEGATIVE Urine Ketones 15 H Urine Occult Blood TRACE-INTA Urine Nitrite NEGATIVE Urine Bilirubin NEGATIVE Urine Urobilinogen 0.2 (NORMAL) Ur Leukocyte Esterase NEGATIVE Ur Microscopic Review NOT INDICATED Urine Culture Comments NOT INDICATED PD MEDICAL DECISION MAKING - ED course ED course: 56-year-old woman with severe anxiety related to yelling at her neighbors children and an IBS flare. Benign exam but she is panicky. She requests treatment as was done the last time she was here and saw me with ketamine and this was done and she felt much better. Departure - Departure Disposition: 01 Home, Self Care Clinical Impression: Acute stress reaction Abdominal pain Qualifiers: Abdominal location: generalized Qualified Code(s): R10.84 - Generalized abdo gonzalez pain Condition: Good Record reviewed to determine appropriate education?: Yes Instructions: ED Abdominal Pain Female Non-Specific Abdominal Pain, ED Panic Attack Prescriptions: LORazepam [Ativan] 1 mg PO TID PRN #12 tablet PRN Reason: Anxiety Comments: I sent your prescription to [facility] in [place]. Do not drink or drive while taking prescription Ativan/lorazepam. Return anytime if you worsen, follow-up with your primary care physician next available appointment. You might talk with your primary care physician about counseling as well.
[2021-11-21 15:02] VITALS: BP 120/60
== END 2021-11-21 15:24 | disposition home or self-care (01) ==
LOC: ED 11:13
DX: F43.0 Acute stress reaction (principal); R10.84 Generalized abdominal pain
CPT/HCPCS: 36415; 80053; 81003; 83690; 85025; 96365; 96375; 99283; J2060; 81001; 87086

== ENCOUNTER 2021-12-12 11:46 | Outpatient (CLI) | payer MEDICARE, MEDICAID ==
--- NOTE | 2021-12-12 15:17 | XRAY Report ---
PROCEDURE: Ribs w/PA Chest RT INDICATIONS: R ANTERIOR CHEST WALL PX TECHNIQUE: 3 views of the right ribs were acquired, along with a single view chest. COMPARISON: None FINDINGS: Surgical changes and devices: None. Bones and chest wall: Mildly displaced right anterolateral 10th rib fracture is present. No suspiciou s bony lesions. Overlying soft tissues appear unremarkable. Lungs and pleura: No pleural effusions or pneumothorax. Lungs appear clear. Mediastinum: Mediastinal contours appear normal. Heart size is normal. IMPRESSION: 1. Right 10th rib fracture. Reviewed by: Catie Amezquita MD on 12/12/2021 3:16 PM PDT Approved by: Catie Amezquita MD on 12/12/2021 3:16 PM PDT Station ID: [id number]
== END 2021-12-12 23:59 | disposition home or self-care (01) ==
LOC: DI.N 11:46
PROVIDERS: ATTEND Physician Assistant
DX: S22.31XA Fracture of one rib, right side, initial encounter for closed fracture (principal)

== ENCOUNTER 2022-03-06 10:00 | Outpatient (CLI) | payer MEDICARE, MEDICAID ==
--- NOTE | 2022-03-06 13:30 | XRAY Report ---
PROCEDURE: Finger(s) RT INDICATIONS: R 5TH DIGIT PX TECHNIQUE: AP hand, 2 views of the right hand fifth digit acquired. COMPARISON: Right hand radiographs 03/16/2013. FINDINGS: Bones: No acute fractures or dislocations. No suspicious bony lesions. Similar corticated bony fra gment adjacent to the ulnar styloid, possibly sequela of chronic injury or variant anatomy/ossicle. D egenerative changes are present at the fifth digit DIP joint. Soft tissues: No suspicious soft tissue calcifications. IMPRESSION: No acute osseous abnormality. If symptoms persist, follow-up radiographs and/or CT may be helpful for further evaluation. Reviewed by: Calvin Anderson MD on 03/06/2022 1:28 PM PDT Approved by: Calvin Anderson MD on 03/06/2022 1:28 PM PDT Station ID: [id number]
--- NOTE | 2022-03-06 14:22 | XRAY Report ---
PROCEDURE: Hips 2V BILAT INDICATIONS: BILATERAL HIP PX TECHNIQUE: 3 views of the hip were acquired. COMPARISON: None FINDINGS: Bones: No fractures or dislocations. No suspicious bony lesions. The visualized pelvic ring appear s intact. Mild joint space narrowing in particular osteophyte formation at the bilateral hip joints. Soft tissues: No suspicious soft tissue calcifications or masses. IMPRESSION: Bilateral hip osteoarthritis. No acute fracture. No osseous lesion. If symptoms and/or clinical suspi cion for pathology continue, further assessment with repeat plain films, or advanced imaging (e.g., C T, MRI, or bone scan) is recommended for further assessment. Reviewed by: Catie Amezquita MD on 03/06/2022 2:21 PM PDT Approved by: Catie Amezquita MD on 03/06/2022 2:21 PM PDT Station ID: [id number]
== END 2022-03-06 10:01 | disposition home or self-care (01) ==
LOC: DI.N 10:00
PROVIDERS: ATTEND Physician Assistant Medical
DX: M79.644 Pain in right finger(s) (principal); M16.0 Bilateral primary osteoarthritis of hip

== ENCOUNTER 2022-03-06 13:30 | Outpatient (CLI) | payer MEDICARE, MEDICAID ==
--- NOTE | 2022-03-07 10:27 | Mammography Report ---
BILATERAL DIGITAL SCREENING MAMMOGRAM 3D/2D: 03/06/2022 CLINICAL: Routine screening. Comparison is made to exams dated: 10/05/2020 mammogram, 11/10/2014 mammogram, 11/19/2013 mammogram, 09/30 mammogram, and 08/02/2010 mammogram - [facility]. There are scattered areas of fibroglandular density in both breasts (category b / 25%-50% glandular t issue). There are benign calcifications in both breasts. No significant masses, calcifications, or other findings are seen in either breast. There has been no significant interval change. IMPRESSION: BENIGN There is no mammographic evidence of malignancy. A 1 year screening mammogram is recommended. Based on the Tyrer Cuzick model (a risk assessment model) the patients lifetime risk is 6.0% and her 10 year risk is 2.0%. According to the ACR, ACS, and NCCN guidelines, an annual breast MRI exam amando g with mammogram is recommended if the patients lifetime risk is 20% or greater. This exam was interpreted at Station ID: [id number]. NOTE: For mammograms, a report in lay terms will be sent to the patient. Approximately 15% of breast malignancies will not be visualized mammographically. In the management of a palpable breast mass, a negative mammogram must not discourage biopsy of a clinically suspicious lesion. Electronically Signed By: Dayron spangler/nicholas:03/06/2022 14:01:37 ACR BI-RADS Category 2: Benign Finding(s) 3342F PARENCHYMAL PATTERN: (A) - The breast(s) demonstrate(s) scattered fibroglandular densities. BI-RADS CATEGORY: (2) - 2 RECOMMENDATION: (ANNUAL) - Recommend routine annual screening mammography. [id number] 1 year screening LATERALITY: (B)
== END 2022-03-06 13:31 | disposition home or self-care (01) ==
LOC: DI.N 13:30
DX: Z12.31 Encounter for screening mammogram for malignant neoplasm of breast (principal)

== ENCOUNTER 2022-04-17 10:51 | Emergency (ER) | payer MEDICARE, MEDICAID ==
[2022-04-17 11:33] LABS: BASOPHILS # (AUTO) 0.1 10^3/uL (0.0-0.1); BASOPHILS % (AUTO) 0.7 %; EOSINOPHILS # (AUTO) 0.4 10^3/uL (0.0-0.7); EOSINOPHILS % (AUTO) 3.9 %; HCT - HEMATOCRIT 38.2 % (37.0-47.0); HGB - HEMOGLOBIN 12.3 g/dL (12.0-16.0); LYMPHOCYTES # (AUTO) 3.5 10^3/uL (1.5-3.5); LYMPHOCYTES % (AUTO) 39.3 %; MEAN CORPUSCULAR HEMOGLOBIN 30.3 pg (27.0-31.0); MEAN CORPUSCULAR HGB CONC 32.2 g/dL (32.0-36.0); MEAN CORPUSCULAR VOLUME 94.1 fL (81.0-99.0); MEAN PLATELET VOLUME 8.9 fL (7.9-10.8); MONOCYTES # (AUTO) 0.7 10^3/uL (0.0-1.0); MONOCYTES % (AUTO) 7.4 %; NEUTROPHILS # (AUTO) 4.3 10^3/uL (1.5-6.6); NEUTROPHILS % (AUTO) 48.4 %; PLT - PLATELET COUNT 277 10^3/uL (130-450); RED BLOOD COUNT 4.06 10^6/uL (4.20-5.40); RED CELL DISTRIBUTION WIDTH 12.4 % (12.0-15.0); WHITE BLOOD COUNT 8.9 x10^3/uL (4.8-10.8)
[2022-04-17 11:46] LABS: ALBUMIN 4.2 g/dL (3.2-5.5); ALBUMIN/GLOBULIN RATIO 1.2 (1.0-2.2); BILIRUBIN,TOTAL 0.5 mg/dL (0.2-1.0); CALCIUM 9.9 mg/dL (8.5-10.3); CREATININE 0.7 mg/dL (0.4-1.0); TOTAL PROTEIN 7.6 g/dL (6.7-8.2)
[2022-04-17 12:27] LABS: BILIRUBIN,URINE NEGATIVE (NEGATIVE); GLUCOSE, URINE (UA) NEGATIVE (NEGATIVE); KETONES,URINE (UA) NEGATIVE (NEGATIVE); LEUKOCYTE ESTERASE, URINE NEGATIVE (NEGATIVE); NITRITE,URINE NEGATIVE (NEGATIVE); OCCULT BLOOD,URINE NEGATIVE (NEGATIVE); PROTEIN,URINE NEGATIVE (NEGATIVE); UROBILINOGEN,URINE 0.2 (NORMAL) E.U./dL (NORMAL)
[2022-04-17 12:32] LABS: CLARITY,URINE CLEAR (CLEAR)
[2022-04-17] MEDS ORDERED: PROPRANOLOL 10 MG TABLET PO STA (15:05)
[2022-04-17] MEDS ORDERED: oxyCODONE 5 MG TABLET PO STA (15:05)
--- NOTE | 2022-04-17 15:09 | ED Physician Documentation ---
History of Present Illness - Stated complaint Stated Complaint: ABD PX - Chief complaint Chief Complaint: Abd Pain - Additonal information Additional information: 57-year-old female presents emergency department for evaluation of left lower quadrant and left flank pain. She has a history of Ehler Danlos and associated with has had right-sided inguinal hernia repair. She states that for several months she has been having pain in her left inguinal area that she is certain is a hernia. She denies any sensation of incarceration as she states she has had those before. She also feels a hole in her mid left flank that she thinks some intestine may be poking through. She has nausea in the mornings only. No vomiting. Denies any melena or hematochezia. She was previously evaluated by [facility] pelvic surgeon who retired. She is scheduled to establish with a new surgeon on the . Patient states she takes propanolol for anxiety and has been out for quite some time and would like this new medication. She is quite clear that she does not desire narcotics. Review of Systems Constitutional: denies: Fever, Chills Throat: reports: Reviewed and negative Respiratory: reports: Reviewed and negative GI: reports: Abdominal Pain, Nausea. denies: Hematemesis, Bloody / black stool : reports: Incontinent (At baseline secondary to bladder prolapse) Skin: reports: Reviewed and negative Musculoskeletal: reports: Reviewed and negative PD PAST MEDICAL HISTORY - Past Medical History Cardiovascular: None Respiratory: None Neuro: Migraines Endocrine/Autoimmune: None GI: Diverticulitis, Other : None HEENT: Chronic vision loss Psych: Depression, Anxiety, Bipolar disorder, Panic attacks, ADD/ADHD, Post traumatic stress disorder, Obsessive compulsive disorder Musculoskeletal: Osteoarthritis, Chronic back pain, Other (Gideon Danlos. 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 - Present Medications Home Medications: Ambulatory Orders Medication Instructions Recorded Confirmed Acyclovir [Zovirax] 200 mg PO BID 11/24/15 06/20/20 traZODone [Desyrel] 200 mg PO DAILY PM 11/24/15 06/20/20 FLUoxetine [PROzac] 20 mg PO TID 09/02/16 06/20/20 Albuterol Sulf [Ventolin Hfa 1 - 2 puffs INH Q4HR PRN 02/11/19 06/14/20 Inhaler] Butalbital/Aspirin/Caffeine 1 - 2 each PO Q4HR PRN 02/11/19 06/14/20 [Ymvqxxrguo-SMN-Caajuvlk Cap] Cyclobenzaprine HCl 10 mg PO TID PRN 02/11/19 06/20/20 Dicyclomine HCl 1 - 2 cap PO QID PRN 02/11/19 06/20/20 Fluticasone [Flonase] 1 sprays DESHAWN BID 02/11/19 06/14/20 Meloxicam 7.5 mg PO BID PRN 02/11/19 06/20/20 Ondansetron Odt [Zofran Odt] 4 mg TL Q6H PRN #20 tablet 06/20/20 methocarbamoL [Robaxin] 500 mg PO Q6H PRN #30 tablet 06/20/20 oxyCODONE [Roxicodone] 5 mg PO Q4-6H PRN #20 tablet 06/20/20 Pregabalin [Lyrica] 75 mg PO BID #60 cap 09/12/20 Pregabalin [Lyrica] 75 mg PO BID #60 cap 09/16/20 Amitriptyline [Elavil] 25 mg PO HS #30 tablet 03/27/21 Mometasone Furoate [Nasonex] 1 spray NS BID #1 bottle 03/27/21 LORazepam [Ativan] 1 mg PO TID PRN #12 tablet 11/21/21 Propranolol [Inderal] 10 mg PO BID PRN #20 tablet 04/17/22 oxyCODONE [Roxicodone] 5 mg PO TID PRN #10 tablet 04/17/22 - Allergies Allergies/Adverse Reactions: Allergies Allergy/AdvReac Type Severity Reaction Status Date / Time morphine Allergy Itching Verified 11/21/21 11:22 adhesive AdvReac Rash Verified 11/21/21 11:22 - Social History Does the pt smoke?: No Smoking Status: Never smoker Does the pt drink ETOH?: Yes Does the pt have substance abuse?: No - Immunizations Immunizations are current?: Yes - POLST Patient has POLST: No PD ED PE NORMAL - General General: Alert and oriented X 3, No acute distress, Well developed/nourished - HEENT HEENT: Atraumatic, Moist mucous membranes - Neck Neck: Supple, no meningeal sign, No adenopathy - Cardiac Cardiac: RRR, No murmur - Respiratory Respiratory: No respiratory distress, Clear bilaterally - Abdomen Abdomen: Normal bowel sounds, Soft. No: Non tender (Mild left inguinal tenderness without obvious hernia appreciated. Left flank tenderness without CVA. 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 Eye Opening: Spontaneous Motor: Obeys Commands Verbal: Oriented GCS Score: 15 - Psych Psych: Normal mood Results - Vitals Vitals: Vital Signs - 24 hr 04/17/22 04/17/22 04/17/22 11:13 14:51 16:01 Temperature 37.0 C 36.6 C Heart Rate 65 64 66 Respiratory 18 16 18 Rate Blood Pressure 131/56 H 108/68 141/74 H O2 Saturation 99 99 100 04/17/22 16:49 Temperature Heart Rate 55 L Respiratory 16 Rate Blood Pressure 145/82 H O2 Saturation 100 Oxygen O2 Source Room air - Labs Labs: Laboratory Tests 04/17/22 04/17/22 04/17/22 11:20 11:28 11:28 WBC 8.9 RBC 4.06 L Hgb 12.3 Hct 38.2 MCV 94.1 MCH 30.3 MCHC 32.2 RDW 12.4 Plt Count 277 MPV 8.9 Neut # (Auto) 4.3 Lymph # (Auto) 3.5 [place] # (Auto) 0.7 Eos # (Auto) 0.4 Baso # (Auto) 0.1 Absolute Nucleated RBC 0.00 Nucleated RBC % 0.0 Sodium 138 Potassium 4.0 Chloride 104 Carbon Dioxide 24 Anion Gap 10.0 BUN 22 H Creatinine 0.7 Estimated GFR (MDRD) 86 L Glucose 98 Calcium 9.9 Total Bilirubin 0.5 AST 15 ALT 13 Alkaline Phosphatase 60 Total Protein 7.6 Albumin 4.2 Globulin 3.4 Albumin/Globulin Ratio 1.2 Lipase 28 Urine Color YELLOW Urine Clarity CLEAR Urine pH 8.0 H Ur Specific [place] 1.015 Urine Protein NEGATIVE Urine Glucose (UA) NEGATIVE Urine Ketones NEGATIVE Urine Occult Blood NEGATIVE Urine Nitrite NEGATIVE Urine Bilirubin NEGATIVE Urine Urobilinogen 0.2 (NORMAL) Ur Leukocyte Esterase NEGATIVE Ur Microscopic Review NOT INDICATED Urine Culture Comments NOT INDICATED - Rads (name of study) CT abd Radiology: Final report received (No acute disease process. No left inguinal or left upper quadrant hernias identified. No free fluid or free air. No dilated loops of bowel. Normal appendix.) PD MEDICAL DECISION MAKING - ED course Complexity details: reviewed results, re-evaluated patient, considered differential, d/w patient ED course: 57-year-old female presents emergency department for evaluation of left lower quadrant abdominal pain. She does have a history of Ehler Danlos as well as previous right inguinal hernia. She feels that this hernia pain is similar to the hernia she has had in the past though she denies a sensation of incarceration. She also has had some left upper quadrant abdominal pain. Some nausea but no vomiting no fevers. She is scheduled to establish with a new pelvic surgeon at [facility] in mid May. She states she has been dealing with this pain for many months and can no longer tolerate it. Labs obtained today in the emergency department were without acute worrisome abnormalities. She did however have left lower quadrant abdominal pain as well as left flank pain with uncertain etiology as CT scan was completed that showed no acute abdominal processes. Patient's symptoms are markedly improved following 1 dose of oral oxycodone. She reports that she is hesitant to take narcotics but would like a limited prescription on discharge which I feel is reasonable given the duration of her symptoms As well as the fact that she has prompt follow-up scheduled with her primary care as well as the surgeon. She is also requesting a refill for her p ropanolol which she uses for anxiety which we will also complete today. Emergent return precautions were discussed for worsening symptoms, fevers, melena and hematochezia I am prescribing a short course of short-acting opioid pain medication for this patient. 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 I have discussed that the opioids are for short term therapy only, and will not be refilled from the ED. Departure - Departure Disposition: 01 Home, Self Care Clinical Impression: Left sided abdominal pain of unknown cause Condition: Stable Record reviewed to determine appropriate education?: Yes Instructions: ED Abdominal Pain Cause Unkn Fem Ch Prescriptions: Propranolol [Inderal] 10 mg PO BID PRN #20 tablet PRN Reason: Anxiety oxyCODONE [Roxicodone] 5 mg PO TID PRN #10 tablet PRN Reason: Pain Comments: Sasha rodríguez are seen today in the emergency department because you have had worsening pain on the left side of your abdomen. Your labs today did not show any worrisome findings. The CT of your abdomen was also essentially normal. I am sending a limited amount of both oxycodone as well as propanolol to the [facility] marketplace. It is important you continue close follow-up with your primary care provider for longer-term management of what is thought to be irritable bowel syndrome. When you do establish with your new pelvic surgeon at [facility] you can show them the CT results which I have handed you. Reasons to return to the emergency department would include fevers, uncontrolled abdominal pain and vomiting, black or bloody stools. I am prescribing a short course of narcotic pain medication for you. These are potentially dangerous and addictive medications that should be used carefully. These medications may constipate you. Take an hwpx-eza-[id number] stool softener (docusate) twice daily with plenty of water while taking these medications. If you go 24 hours without a bowel movement, take mdsz-zod-refrzts miralax, per package instructions. Do not drink or drive while taking these medications. If you received narcotic or sedating medications while in the emergency department, do not drive for 24 hours. Store this medication in a safe, secure place and out of reach of children. It is a violation of federal law to give or sell this medication to another person or to use in a manner other than prescribed. The ED will not refill narcotic prescriptions, including prescriptions lost or stolen. To dispose of unwanted medications: 1. [facility] at [address] in [place] has a medication drop box. They accept prescription medications (in pill form) Saturday through Saturday 9:00 a.m. to 5:00 p.m. 2. The [facility] [employer] accepts prescription medications (in pill form only) for disposal year round. Call for more information. 3. Contact the [facility] for the next [facility] sponsored prescription drug collection event. , [phone], or [phone]; Note that many narcotic pain relievers also contain Tylenol/acetaminophen. Please ensure that your total dose of acetaminophen from all sources does not exceed 3 g (3000 mg) per day.
--- NOTE | 2022-04-17 16:30 | CT Report ---
PROCEDURE: ABDOMEN/PELVIS WO INDICATIONS: Pain.? left inguinal and LUQ hernia TECHNIQUE: Noncontrast 5 mm thick sections acquired from the diaphragms to the symphysis. 5 mm coronal and sagi ttal reformats were then performed. For radiation dose reduction, the following was used: automated exposure control, adjustment of mA and/or kV according to patient size. COMPARISON: 03/27/2021. FINDINGS: Image quality: Excellent. ABDOMEN: Lung bases: Lung bases are clear of acute opacities. Interstitial thickening noted in the periphery lung bases bilaterally which is stable compared to prior examination and is compatible with chronic i nterstitial lung disease. Heart size is normal. Solid organs: Liver and spleen are normal in size. Gallbladder is surgically absent. Pancreas is n ormal in contours. No adrenal nodules. Kidneys are normal in size, without hydronephrosis or nephro lithiasis. Peritoneum and bowel: Small hiatal hernia. Unenhanced bowel loops demonstrate normal wall thickness and caliber. No free fluid or air. Normal appendix. Nodes and vessels: No retroperitoneal or mesenteric adenopathy by size criteria. Aorta and inferior vena cava are normal in caliber. Scattered atherosclerotic calcifications are noted in the abdominal and pelvic vasculature. Miscellaneous: No ventral hernias. PELVIS: Genitourinary: Bladder wall thickness is normal. Uterus is absent. Miscellaneous: No inguinal hernias or adenopathy. Bones: No suspicious bony lesions. No vertebral body compression fractures. Convex left curvature o f the lumbar spine scoliosis is stable. Spine degenerative disc disease and facet arthropathy are not ed. IMPRESSION: No acute disease process. No left inguinal or left upper quadrant hernias identified. No free fluid or free air. No dilated loops of bowel. Appendix is normal. Reviewed by: Genesis Cannon MD, PhD on 04/17/2022 4:28 PM PDT Approved by: Genesis Cannon MD, PhD on 04/17/2022 4:28 PM PDT Station ID: [id number]
[2022-04-17 17:53] VITALS: BP 137/91
== END 2022-04-17 17:54 | disposition home or self-care (01) ==
LOC: ED 10:51
DX: R10.32 Left lower quadrant pain (principal)
CPT/HCPCS: 36415; 74176; 80053; 81003; 83690; 85025; 99282; 99284; A9270; 81001; 87086

== ENCOUNTER 2022-05-22 14:21 | Outpatient (CLI) | payer MEDICARE, MEDICAID ==
--- NOTE | 2022-05-22 16:01 | XRAY Report ---
PROCEDURE: Knee 4 View LT INDICATIONS: LEFT KNEE PAIN TECHNIQUE: 4 views of the left knee and one view of the right knee were acquired. COMPARISON: None. FINDINGS: Bones: No fractures or dislocations. No suspicious bony lesions. Moderate narrowing of the medial femorotibial compartment joint space. Mild narrowing of the contralateral right medial compartment erick int spaces is also noted. The left lateral and anterior compartment joint spaces are grossly maintain ed. Tiny tricompartmental marginal osteophytes are present. Soft tissues: Trace left joint effusion. No suspicious soft tissue calcifications. IMPRESSION: Mild osteoarthrosis is most notable and moderate in severity in the medial femorotibial compartment. Reviewed by: Calvin Carroll MD on 05/22/2022 3:59 PM PST Approved by: Calvin Carroll MD on 05/22/2022 3:59 PM PST Station ID: [id number]
== END 2022-05-22 14:22 | disposition home or self-care (01) ==
LOC: DI.WOS 14:21
PROVIDERS: ATTEND Physician Assistant Surgical
DX: M17.11 Unilateral primary osteoarthritis, right knee (principal)

== ENCOUNTER 2022-09-20 08:00 | Outpatient (CLI) | payer MEDICARE, MEDICAID | END 2022-09-20 23:59 | disposition home or self-care (01) | LOC: LAB.WCP 08:00 | PROVIDERS: ATTEND Physician Assistant Medical | DX: J06.9 Acute upper respiratory infection, unspecified (principal); Z20.822 Contact with and (suspected) exposure to COVID-19 ==

== ENCOUNTER 2022-09-22 09:57 | Outpatient (CLI) | payer MEDICARE, MEDICAID ==
--- NOTE | 2022-09-22 11:56 | XRAY Report ---
PROCEDURE: Chest 2 View X-Ray INDICATIONS: URI TECHNIQUE: 2 views of the chest were acquired. COMPARISON: 10/05/2021, 11/10/2020. Correlation is also made with overlapping portions of CT, 2. FINDINGS: Surgical changes and devices: Cholecystectomy clips are seen. Lower cervical spine postoperative h ardware is seen. Lungs and pleura: No pleural effusions or pneumothorax. Interstitial prominence can be seen at the l tono bases. No focal infiltrates are seen. Mediastinum: Mediastinal contours are normal. Heart siz e is normal. Bones and chest wall: No suspicious bony abnormalities. Age-appropriate degenerative changes are se en. Mild to moderate dextroconvex scoliotic curvature is seen. Soft tissues appear unremarkable. IMPRESSION: No focal infiltrates are seen. Interstitial prominence can be seen at the lung bases, which is most likely related to subpleural fib rosis. Reviewed by: Valente Cha MD on 09/22/2022 10:55 AM ZHEN Approved by: Valente Cha MD on 09/22/2022 10:55 AM ZHEN Station ID: [id number]
== END 2022-09-22 09:58 | disposition home or self-care (01) ==
LOC: DI 09:57
PROVIDERS: ATTEND Physician Assistant Medical
DX: R91.8 Other nonspecific abnormal finding of lung field (principal); J06.9 Acute upper respiratory infection, unspecified

== ENCOUNTER 2022-11-20 06:36 | Outpatient (CLI) | payer MEDICARE, MEDICAID ==
[2022-11-20 07:29] LABS: BASOPHILS # (AUTO) 0.1 10^3/uL (0.0-0.1); BASOPHILS % (AUTO) 0.7 %; EOSINOPHILS # (AUTO) 0.3 10^3/uL (0.0-0.7); EOSINOPHILS % (AUTO) 4.4 %; HGB - HEMOGLOBIN 12.7 g/dL (12.0-16.0); LYMPHOCYTES # (AUTO) 1.9 10^3/uL (1.5-3.5); LYMPHOCYTES % (AUTO) 25.5 %; MEAN CORPUSCULAR HEMOGLOBIN 31.1 pg (27.0-31.0); MEAN CORPUSCULAR HGB CONC 33.4 g/dL (32.0-36.0); MEAN CORPUSCULAR VOLUME 93.1 fL (81.0-99.0); MEAN PLATELET VOLUME 9.2 fL (7.9-10.8); MONOCYTES # (AUTO) 0.5 10^3/uL (0.0-1.0); MONOCYTES % (AUTO) 6.3 %; NEUTROPHILS # (AUTO) 4.6 10^3/uL (1.5-6.6); NEUTROPHILS % (AUTO) 62.8 %; PLT - PLATELET COUNT 269 10^3/uL (130-450); RED BLOOD COUNT 4.08 10^6/uL (4.20-5.40); RED CELL DISTRIBUTION WIDTH 12.8 % (12.0-15.0); WHITE BLOOD COUNT 7.3 x10^3/uL (4.8-10.8)
[2022-11-20 07:51] LABS: ALBUMIN 3.9 g/dL (3.2-5.5); ALBUMIN/GLOBULIN RATIO 1.1 (1.0-2.2); ALKALINE PHOSPHATASE 60 IU/L (42-121); ALT ALANINE AMINOTRANSFERASE 14 IU/L (10-60); AST ASPARTATE AMINOTRANSFERASE 16 IU/L (10-42); BILIRUBIN,TOTAL 0.5 mg/dL (0.2-1.0); BUN - BLOOD UREA NITROGEN 19 mg/dL (6-20); CARBON DIOXIDE - CO2 24 mmol/L (21-32); CHLORIDE 104 mmol/L (101-111); CHOL/HDL RATIO 3.7 (<4.4); CHOLESTEROL 249 mg/dL; CREATININE 0.6 mg/dL (0.4-1.0); GFR - MDRD 103 (>89); GLUCOSE 100 mg/dL (70-100); HDL CHOLESTEROL 68 mg/dL; LDL CHOLESTEROL,CALCULATED 165 mg/dL; LDL/HDL RATIO 2.4 (<4.4); POTASSIUM 4.1 mmol/L (3.5-5.0); SODIUM 138 mmol/L (135-145); TOTAL PROTEIN 7.5 g/dL (6.7-8.2); TRIGLYCERIDES 78 mg/dL; VLDL CHOLESTEROL 16 mg/dL
[2022-11-20 07:56] LABS: THYROID STIMULATING HORMONE 1.74 uIU/mL (0.34-5.60)
--- NOTE | 2022-11-20 11:52 | Ultrasound Report ---
PROCEDURE: Pelvic Limited or F/U INDICATIONS: LEFT GROIN PAIN TECHNIQUE: Real-time transabdominal scanning was performed of the left groin, with image documentation. COMPARISON: None. FINDINGS: Targeted ultrasound of the left groin demonstrates no inguinal hernia or sonographic abnormality. IMPRESSION: No inguinal hernia. Reviewed by: Cecilio Nichols on 11/20/2022 10:50 AM ZHEN Approved by: Cecilio Nichols on 11/20/2022 10:50 AM KSCATHERINE Station ID: [id number]
== END 2022-11-20 06:37 | disposition home or self-care (01) ==
LOC: DI 06:36
PROVIDERS: ATTEND Nurse Practitioner
DX: R10.32 Left lower quadrant pain (principal); Z13.220 Encounter for screening for lipoid disorders; F43.10 Post-traumatic stress disorder, unspecified
CPT/HCPCS: 36415; 80053; 80061; 83721; 84443; 85025

== ENCOUNTER 2023-03-20 16:10 | Emergency (ER) | payer MEDICARE, MEDICAID ==
[2023-03-20 16:28] VITALS: BP 116/71; O2SAT 97
--- NOTE | 2023-03-20 18:44 | ED Physician Documentation ---
History of Present Illness - Stated complaint Stated Complaint: FACE LAC - Chief complaint Chief Complaint: General - History obtained from History obtained from: Patient - Additonal information Additional information: Patient is a 58-year-old female presenting for evaluation of a wound to her left face that will not stop bleeding for the past several hours. Patient states that she took a pair of tweezers and plucked at a hair and a few hours later she brushed the area and it started to bleed. Is not been able to stop the bleeding with pressure. She does not take a blood thinner. 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 Her tetanus is up-to-date. 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: Hysterectomy - Present Medications Home Medications: Ambulatory Orders Medication Instructions Recorded Confirmed Acyclovir [Zovirax] 200 mg PO BID 11/24/15 06/20/20 traZODone [Desyrel] 200 mg PO DAILY PM 11/24/15 06/20/20 FLUoxetine [PROzac] 20 mg PO TID 09/02/16 06/20/20 Mometasone Furoate [Nasonex] 1 spray NS BID #1 bottle 03/27/21 ARIPiprazole [Abilify] 5 mg PO DAILY 03/20/23 03/20/23 - Allergies Allergies/Adverse Reactions: Allergies Allergy/AdvReac Type Severity Reaction Status Date / Time morphine Allergy Itching Verified 03/20/23 18:17 adhesive AdvReac Rash Verified 03/20/23 18:17 - Social History Does the pt smoke?: No Smoking Status: Never smoker Does the pt drink ETOH?: No Does the pt have substance abuse?: No Substance Use and Type: Marijuana - Immunizations Immunizations are current?: Yes - POLST Patient has POLST: No PD ED PE NORMAL - General General: Alert and oriented X 3, No acute distress, Well developed/nourished - HEENT HEENT: Atraumatic, Other (Pinpoint area of bleeding which is brisk to the left cheek, difficulty with visualization due to briskness of bleeding, not arterial bleeding, no underlying swelling or tenderness) - Neck Neck: Supple, no meningeal sign - Derm Derm: Warm and dry - Neuro Neuro: Normal speech Results - Vitals Vitals: Vital Signs - 24 hr 03/20/23 16:18 Temperature 36.7 C Heart Rate 72 Respiratory 18 Rate Blood Pressure 116/71 O2 Saturation 97 Oxygen O2 Source Room air Procedures - Laceration (location) Left cheek Length in cm: 1 (1-2mm) Wound type: Irregular, Clean Anesthesia: Lidocaine 1% Skin layer closure: Size #-0 - enter number (4-0), Sutures - enter # (2) Other: Patient tolerated well, No complications, Dressing applied, Tetanus UTD PD Medical Decision Making - ED course ED course: Patient with superficial wound to left cheek that is briskly bleeding, not arterial, no underlying swelling. No signs of infection. Patient is unclear whether there was a mole or something else that she had plucked off. She does not take a blood thinner. Attempted Dermabond but this was unsuccessful due to the briskness of the bleeding. I did place 2 sutures in a cross hair pattern to ultimately stop the bleeding. Dressing was also applied to the area. Patient counseled on wound care instructions as well as need to return for suture removal. Departure - Departure Disposition: 01 Home, Self Care Clinical Impression: Laceration of left cheek Condition: Stable Instructions: ED Laceration Facial Sutr Tape Comments: You have a small wound to the left cheek that required 2 stitches to control the bleeding. The stitches should be removed in approximately 5 days. You can return to the emergency department or to an urgent care for suture removal. Return to the ER with any concerns.
== END 2023-03-20 18:53 | disposition home or self-care (01) ==
LOC: ED 16:10
DX: S01.412A Laceration without foreign body of left cheek and temporomandibular area, initial encounter (principal); X58.XXXA Exposure to other specified factors, initial encounter
CPT/HCPCS: 12011; 99281

== ENCOUNTER 2023-04-02 08:24 | Outpatient (CLI) | payer MEDICARE, MEDICAID ==
--- NOTE | 2023-04-03 13:23 | Mammography Report ---
BILATERAL DIGITAL SCREENING MAMMOGRAM 3D/2D: 04/02/2023 CLINICAL: Routine screening. Comparison is made to exams dated: 03/06/2022 mammogram, 10/05/2020 mammogram, 11/10/2014 mammogram, 11/19 mammogram, 10/26/2011 mammogram, and 08/02/2010 mammogram - [facility]. There are scattered areas of fibroglandular density in both breasts (category b / 25%-50% glandular t issue). There are benign calcifications in both breasts. No significant masses, calcifications, or other findings are seen in either breast. There has been no significant interval change. IMPRESSION: BENIGN There is no mammographic evidence of malignancy. A 1 year screening mammogram is recommended. Based on the Tyrer Cuzick model (a risk assessment model) the patients lifetime risk is 5.9% and her 10 year risk is 2.1%. According to the ACR, ACS, and NCCN guidelines, an annual breast MRI exam amando g with mammogram is recommended if the patients lifetime risk is 20% or greater. This exam was interpreted at Station ID: [id number]. NOTE: For mammograms, a report in lay terms will be sent to the patient. Approximately 15% of breast malignancies will not be visualized mammographically. In the management of a palpable breast mass, a negative mammogram must not discourage biopsy of a clinically suspicious lesion. Electronically Signed By: Fidel grace/nicholas:04/02/2023 11:55:53 letter sent: No_Letter ACR BI-RADS Category 2: Benign Finding(s) 3342F PARENCHYMAL PATTERN: (A) - The breast(s) demonstrate(s) scattered fibroglandular densities. BI-RADS CATEGORY: (2) - 2 Mammogram [id number] 1 year screening LATERALITY: (B)
== END 2023-04-02 08:25 | disposition home or self-care (01) ==
LOC: DI.N 08:24
DX: Z12.31 Encounter for screening mammogram for malignant neoplasm of breast (principal)

== ENCOUNTER 2023-06-03 06:44 | Outpatient (CLI) | payer MEDICARE, MEDICAID ==
[2023-06-03 07:54] LABS: ALBUMIN 4.3 g/dL (3.2-5.5); ALBUMIN/GLOBULIN RATIO 1.7 (1.0-2.2); ALKALINE PHOSPHATASE 71 IU/L (42-121); ALT ALANINE AMINOTRANSFERASE 8 IU/L (10-60); AST ASPARTATE AMINOTRANSFERASE 11 IU/L (10-42); BILIRUBIN,TOTAL 0.3 mg/dL (0.2-1.0); BUN - BLOOD UREA NITROGEN 20 mg/dL (6-20); CALCIUM 9.5 mg/dL (8.5-10.3); CARBON DIOXIDE - CO2 26 mmol/L (21-32); CHLORIDE 104 mmol/L (101-111); CHOL/HDL RATIO 3.7 (<4.4); CHOLESTEROL 257 mg/dL; CREATININE 0.7 mg/dL (0.6-1.3); GFR - MDRD 86 (>89); GLUCOSE 97 mg/dL (74-104); HDL CHOLESTEROL 69 mg/dL; LDL CHOLESTEROL,CALCULATED 171 mg/dL; LDL/HDL RATIO 2.5 (<4.4); SODIUM 138 mmol/L (135-145); TOTAL PROTEIN 6.9 g/dL (6.4-8.9); TRIGLYCERIDES 84 mg/dL (48-352); VLDL CHOLESTEROL 17 mg/dL
== END 2023-06-03 06:45 | disposition home or self-care (01) ==
LOC: LAB 06:44
PROVIDERS: ATTEND Physician Assistant Medical
DX: E78.5 Hyperlipidemia, unspecified (principal)
CPT/HCPCS: 36415; 80053; 80061; 83721

== ENCOUNTER 2023-06-13 09:30 | Outpatient (CLI) | payer MEDICARE, MEDICAID ==
--- NOTE | 2023-06-13 13:29 | XRAY Report ---
PROCEDURE: Ribs w/PA Chest RT INDICATIONS: UNSPECIFIED CONTUSION OF THORAX TECHNIQUE: 3 views of the right ribs were acquired, along with a single view chest. COMPARISON: 09/22/2021 [place] that 09/22/2022 FINDINGS: Surgical changes and devices: Cholecystectomy, anterior cervical fusion hardware.. Bones and chest wall: No fractures or dislocations. No suspicious bony lesions. Overlying soft tis sues appear unremarkable. Lungs and pleura: No pleural effusions or pneumothorax. Mild bibasilar chronic interstitial pulmonar y fibrosis, right greater than left. Mediastinum: Mediastinal contours appear normal. Heart size is normal. IMPRESSION: No displaced rib fracture or pneumothorax. No acute pulmonary process. Mild bibasilar chronic pulmona ry interstitial fibrosis. Reviewed by: Tadoe Goldstein MD on 06/13/2023 1:28 PM PST Approved by: Tadeo Goldstein MD on 06/13/2023 1:28 PM PST Station ID: [id number]
== END 2023-06-13 09:45 | disposition home or self-care (01) ==
LOC: DI.N 09:30
PROVIDERS: ATTEND Nurse Practitioner
DX: J84.10 Pulmonary fibrosis, unspecified (principal); S20.222A Contusion of left back wall of thorax, initial encounter

== ENCOUNTER 2023-06-21 07:54 | Outpatient (CLI) | payer MEDICARE, MEDICAID ==
--- NOTE | 2023-06-21 12:21 | DEXA Report ---
PROCEDURE: Dexa Spine and/or Hip INDICATIONS: POST MENOPAUSAL TECHNIQUE: Dual energy x-ray absorptiometry (DXA) was performed on a [employer] System. Regions measur ed are the AP Spine, femoral neck, and if needed forearm. COMPARISON: 09/10/2019 FINDINGS: Lumbar Spine: Bone Mineral Density 0.979 g/cm/cm,T score -1.7. There is interval 2% increase in total lumbar spine bone density Left Femoral Neck: Bone Mineral Density 0.720 g/cm/cm, T score -2.3. Left Hip: Bone Mineral Density 0.678 g/cm/cm,T score -2.6. There is interval 8.5% decrease in left hip bone den sity. (T score greater or equal to -1.0: NORMAL) (T score from -1.1 to -2.4: OSTEOPENIA) (T score less than or equal to -2.5 to: OSTEOPOROSIS) Impression: By WHO criteria, this patient has osteoporosis. Patients with diagnosis of osteoporosis or osteopenia should have regular bone mineral density assess ment. For those eligible for Medicare, routine testing is allowed once every 2 years. Testing frequ ency can be increased for patients who have rapidly progressing disease or for those who are receivin g medical therapy to restore bone mass. Reviewed by: Radu Velasquez MD on 06/21/2023 12:19 PM PST Approved by: Radu Velasquez MD on 06/21/2023 12:19 PM PST Station ID: [id number]
== END 2023-06-21 07:55 | disposition home or self-care (01) ==
LOC: DI 07:54
PROVIDERS: ATTEND Physician Assistant Medical
DX: Z78.0 Asymptomatic menopausal state (principal); M81.0 Age-related osteoporosis without current pathological fracture